=== PATIENT | female | born 1955 | race Caucasian/White ===

== ENCOUNTER 2016-03-22 11:28 | Emergency (ER) ==
--- NOTE | 2016-03-22 11:53 | PROVIDER DOCUMENTATION ---
HPI-General Adult - General Source: patient - History of Present Illness -Gen Adult Nature of Presenting Problems: patient is a 60 y/o F that presents to the ER with 2 weeks of lower leg swelling. patient has lung ca with last chemo a month ago. was admitted a two weeks ago with pneumonia. patient saw yesterday and had lab work, he advised her to f/u with today in which he sent her here for evaluation of lower leg edema and possible admission. pt has had no chest pain, shortness of breath, or fever/chills. Location of Pain/Injury: reports: lower extremity Pain Radiation: reports: no radiation Quality of Pain: reports: none Severity: reports: mild, moderate Onset/Duration: reports: gradual, other (2 weeks) Timing: reports: still present, constant Context/Activities at Onset: reports: none Modifying Factors: improves with: nothing Associated Symptoms: reports: malaise, weakness. denies: back/neck pain, chest pain, cough, dizziness, EENT symptoms, fever/chills, genitourinary problems, nausea, rash, trouble walking Similar Symptoms Previously?: Yes Recently seen or treated by another doctor?: Yes <Juan M Abdul - Last Filed: 03/22/16 12:59> <Val Coleman - Last Filed: 03/22/16 16:32> - General Chief Complaint: High Blood Sugar Stated Complaint: BLOOD SUGAR PROB Time Seen by Provider: 03/22/16 11:39 Allergies/Adverse Reactions: Patient Allergies Allergy/AdvReac Type Severity Reaction Status Date / Time codeine Allergy RASH Verified 03/08/16 10:25 morphine AdvReac Severe NAUSEA AND Verified 03/08/16 10:25 VOMITING methadone AdvReac NAUSEA/VOMI Verified 03/08/16 10:25 TING PAPER TAPE Allergy RASH Uncoded 03/08/16 10:25 Home Medications: Methocarbamol 750 mg PO DAILY 10/26/15 Prednisone 20 mg PO DAILY 10/26/15 Triamterene/Hydrochlorothiazid [Triamterene-Hctz 37.5-25 mg Cp] 1 each PO DAILY 10/26/15 Methotrexate 2.5 mg PO DAILY 03/08/16 Metoclopramide [Reglan] 10 mg PO Q6HR 03/08/16 Promethazine [Phenergan] 25 mg PO Q6H PRN PRN 03/08/16 Review of Systems - Adult - REVIEW OF SYSTEMS - ADULT Constitutional: reports: fatique. denies: chills, fever Eyes: reports: no symptoms reported Ears, Nose, Mouth & Throat: reports: no symptoms reported Cardiovascular: reports: edema. denies: chest pain, palpitations, syncope Respiratory: denies: cough, shortness of breath, wheezing Gastrointestinal: denies: abdominal pain, diarrhea, nausea, vomiting Genitourinary: reports: no symptoms reported Musculoskeletal: denies: back pain, muscle aches, neck pain Integumentary: denies: itching, rash, skin thickening Neurological: reports: no symptoms reported Psychiatric: reports: no symptoms reported Endocrine: reports: no symptoms reported Hematologic/Lymphatic: reports: no symptoms reported Allergic/Immunologic: reports: no symptoms reported All Other Systems: Reviewed and Negative <Juan M Abdul - Last Filed: 03/22/16 12:59> Past History - Adult - PAST MEDICAL HISTORY-ADULT Review of Records: reports: Old Records Reviewed, Nursing Assessment Review, Medications Reviewed Cardiovascular: reports: HTN Respiratory: reports: cancer, other Gastrointestinal: reports: GERD Musculoskeletal: reports: arthritis (Rheumatoid), chronic pain, orthopedic injury Psychiatric: reports: anxiety - PRIOR SURGERIES/PROCEDURES Surgical/Procedure History: reports: recent surgery - IMMUNIZATION STATUS Childhood Immunizations: See Nurse Assessment Flu Vaccine: See Nurse Assessment - FAMILY HISTORY Family History: reviewed, not pertinent <Juan M Abdul - Last Filed: 03/22/16 12:59> Physical Exam-General - PHYSICAL EXAM-ADULT Initial Vital Signs Reviewed: Yes - EYES Eyes: PERRL/EOMI, pink conjunctivae - HEAD, EARS, NOSE, MOUTH & THROAT HENMT: normocephalic/atraumatic, moist mucous membranes, normal ENT inspection - NECK Neck: non-tender, full range of motion, normal inspection - RESPIRATORY Respiratory: chest non-tender, lungs clear, normal breath sounds, no respiratory distress, no accessory muscle use - CARDIOVASCULAR Cardiovascular: no gallop, no JVD, systolic murmur - GASTROINTESTINAL (ABDOMEN) Abdominal Exam: normal bowel sounds, non tender, soft, no organomegaly, no pulsatile mass - MUSCULOSKELETAL Extremity: normal range of motion, normal capillary refill, pelvis stable, pedal edema (2 plus) - SKIN Integumentary: normal color, warm/dry - NEUROLOGIC Neurologic: grossly normal, no motor/sensory deficits - PSYCHIATRIC Psych/Mental Status: normal mood/affect, normal thought content, normal thought process, oriented x 3 <Juan M Abdul - Last Filed: 03/22/16 12:59> Progress - EKG 1 Time of EKG reading by physician:: 12:29 EKG Read and Signed by:: Sandra Padilla EKG Interpretation (*Must complete 3 of following elements*): Abnormal Rate: 95 Rhythm: NSR TX Interval: normal ST Wave: normal Comments: prolonged QT <Juan M Abdul - Last Filed: 03/22/16 12:59> - PLAN OF CARE/RESULTS Progress/Plan/Lab Results: Vascular now to bedside 1525 Vital Signs Temp Pulse Resp BP Pulse Ox 03/22/16 15:13 96 H 16 130/75 98 03/22/16 11:32 98 F 96 H 18 128/74 94 L codeine Allergy (Verified 03/08/16 10:25) RASH morphine Adverse Reaction (Severe, Verified 03/08/16 10:25) NAUSEA AND VOMITING methadone Adverse Reaction (Verified 03/08/16 10:25) NAUSEA/VOMITING PAPER TAPE Allergy (Uncoded 03/08/16 10:25) RASH Methocarbamol 750 mg PO DAILY 10/26/15 Prednisone 20 mg PO DAILY 10/26/15 Triamterene/Hydrochlorothiazid [Triamterene-Hctz 37.5-25 mg Cp] 1 each PO DAILY 10/26/15 Insulin Detemir [Levemir Flextouch] 40 unit SQ BID #0 11/15/15 Nadolol [Corgard] 20 mg PO DAILY #0 tablet 11/15/15 Rivaroxaban [Xarelto] 15 mg PO BID #60 tablet 11/15/15 Ondansetron [Zofran] 4 mg PO Q6H PRN PRN #20 tablet 11/19/15 Albuterol 2.5MG/Ipratrop 0.5MG [Duoneb (A & A)] 3 ml INH Q2H PRN PRN #0 neb Methotrexate 2.5 mg PO DAILY 03/08/16 Metoclopramide [Reglan] 10 mg PO Q6HR 03/08/16 Promethazine [Phenergan] 25 mg PO Q6H PRN PRN 03/08/16 CefUROXIME [Ceftin] 250 mg PO Q12HR #14 tablet 03/09/16 Folic Acid 1 mg PO DAILY #0 tablet 03/09/16 Furosemide [Lasix] 20 mg PO DAILY #0 tablet 03/09/16 Gabapentin [Neurontin] 300 mg PO TID #0 capsule 03/09/16 Levofloxacin [Levaquin] 750 mg PO DAILY #7 tablet 03/09/16 Omeprazole [Prilosec] 40 mg PO DAILY@07 #0 capsule 03/09/16 Potassium Chloride E.r. [Klor-Con] 20 meq PO BID #0 tablet 03/09/16 SIMVAstatin [Zocor] 10 mg PO DAILY #0 tablet 03/09/16 Laboratory 03/22/16 03/22/16 03/22/16 12:30 12:00 12:00 WBC 4.57 L RBC 3.89 L Hgb 10.8 L Hct 34.0 L MCV 87.4 MCH 27.8 MCHC 31.8 L RDW Std Deviation 16.7 H Plt Count 136 MPV 9.8 Immature Gran % (Auto) 0.0 Neut % (Auto) 66.8 Lymph % (Auto) 16.8 L [place] % (Auto) 14.2 H Eos % (Auto) 1.8 Baso % (Auto) 0.4 Immature Gran # (Auto) 0.00 Neut # (Auto) 3.05 Lymph # (Auto) 0.77 L [place] # (Auto) 0.65 H Eos # (Auto) 0.08 Baso # (Auto) 0.02 PT 15.1 INR 1.16 H APTT (Factor Assay) 30.9 D-Dimer > 20.00 H Sodium Potassium Chloride Carbon Dioxide Anion Gap BUN Creatinine Estimated GFR/1.73 m2 BUN/Creatinine Ratio Glucose POC Glucose Calculated Osmolality Calcium Magnesium Total Bilirubin AST ALT Alkaline Phosphatase Creatine Kinase Troponin T Maf-N-Rqasvclaabw Pept Total Protein Albumin Globulin Albumin/Globulin Ratio Urine Source CLEAN CATCH Urine Color YELLOW Urine Clarity SL. CLOUDY A Urine pH 7.0 Ur Specific [place] 1.010 Urine Protein NEGATIVE Urine Ketones NEGATIVE Urine Blood NEGATIVE Urine Nitrite NEGATIVE Urine Bilirubin NEGATIVE Urine Urobilinogen NORMAL Urine Microscopic RBC Not Reportable Urine WBC 2+ A Urine Microscopic WBC 20-40 A Ur Epithelial Cells >10 A Urine Bacteria 1+ Urine Glucose NEGATIVE 03/22/16 03/22/16 03/22/16 12:00 12:00 12:00 WBC RBC Hgb Hct MCV MCH MCHC RDW Std Deviation Plt Count MPV Immature Gran % (Auto) Neut % (Auto) Lymph % (Auto) [place] % (Auto) Eos % (Auto) Baso % (Auto) Immature Gran # (Auto) Neut # (Auto) Lymph # (Auto) [place] # (Auto) Eos # (Auto) Baso # (Auto) PT INR APTT (Factor Assay) D-Dimer Sodium 136 Potassium 2.6 L Chloride 95 L Carbon Dioxide 33 Anion Gap 9 BUN 12 Creatinine 0.7 Estimated GFR/1.73 m2 > 60 BUN/Creatinine Ratio 17 Glucose 185 H POC Glucose Calculated Osmolality 277 Calcium 8.9 Magnesium 1.9 Total Bilirubin 0.80 AST 35 H ALT 14 Alkaline Phosphatase 156 H Creatine Kinase 45 Troponin T < 0.010 Bmx-C-Fosssuoxxwb Pept 38 Total Protein 7.1 Albumin 3.3 L Globulin 4.0 Albumin/Globulin Ratio 1.0 Urine Source Urine Color Urine Clarity Urine pH Ur Specific [place] Urine Protein Urine Ketones Urine Blood Urine Nitrite Urine Bilirubin Urine Urobilinogen Urine Microscopic RBC Urine WBC Urine Microscopic WBC Ur Epithelial Cells Urine Bacteria Urine Glucose 03/22/16 11:32 WBC RBC Hgb Hct MCV MCH MCHC RDW Std Deviation Plt Count MPV Immature Gran % (Auto) Neut % (Auto) Lymph % (Auto) [place] % (Auto) Eos % (Auto) Baso % (Auto) Immature Gran # (Auto) Neut # (Auto) Lymph # (Auto) [place] # (Auto) Eos # (Auto) Baso # (Auto) PT INR APTT (Factor Assay) D-Dimer Sodium Potassium Chloride Carbon Dioxide Anion Gap BUN Creatinine Estimated GFR/1.73 m2 BUN/Creatinine Ratio Glucose POC Glucose 152 H Calculated Osmolality Calcium Magnesium Total Bilirubin AST ALT Alkaline Phosphatase Creatine Kinase Troponin T Fiz-S-Dmbhesvtcuk Pept Total Protein Albumin Globulin Albumin/Globulin Ratio Urine Source Urine Color Urine Clarity Urine pH Ur Specific [place] Urine Protein Urine Ketones Urine Blood Urine Nitrite Urine Bilirubin Urine Urobilinogen Urine Microscopic RBC Urine WBC Urine Microscopic WBC Ur Epithelial Cells Urine Bacteria Urine Glucose Orders Category Date Time Status Cardiac Monitoring DIRECTED Care 03/22/16 11:47 Active FSBS [Finger Stick Blood Sugar (ED)] DIRECTED Care 03/22/16 11:37 Active Oxygen Therapy- ED Nursing DIRECTED Care 03/22/16 11:47 Active Saline Loc NOW Care 03/22/16 11:47 Active CHEST-2 VIEWS [RAD] Stat Exams 03/22/16 11:47 Completed CBC WITH ELECTRONIC DIFF [HEME] Stat Lab 03/22/16 12:00 Completed CK PROFILE [SP CHEM] Stat Lab 03/22/16 12:00 Completed COMPREHENSIVE METABOLIC PANEL [CHEM] Stat Lab 03/22/16 12:00 Completed D-DIMER PL [COAG] Stat Lab 03/22/16 12:00 Completed MAGNESIUM [CHEM] Stat Lab 03/22/16 12:00 Completed PRO B-NATRIURETIC PEPTIDE Stat Lab 03/22/16 12:00 Completed [address]IME WITH INR PL [COAG] Stat Lab 03/22/16 12:[address] [COAG] Stat Lab 03/22/16 12:00 Completed TROPONIN T Stat Lab 03/22/16 12:00 Completed UA [URINALYSIS PL W/POSS RFLX CULT] [URINALYSIS] Stat Lab 03/22/16 12:30 Completed URINE CULTURE [RM] Routine Lab 03/22/16 12:20 Received 0.9% Sodium Chloride Inj [Ns] 500 ml Med 03/22/16 14:11 Discontinued .ROUTE As Directed 0.9% Sodium Chloride Inj [Ns] 500 ml Med 03/22/16 14:21 Active IV 75 mls/hr CefTRIAXONE 1 GM/NS [Rocephin 1 gm/Ns] 50 ml Med 03/22/16 13:03 Discontinued IV NOW Furosemide [Lasix] Med 03/22/16 16:15 Once 20 mg IV NOW ONE Potassium Chloride 10 Meq/Swi 100 ml Med 03/22/16 12:58 Discontinued IV ONCE EKG [EKG] Stat Ther 03/22/16 11:47 Draft Venous U/S Bilateral Legs [CV] Stat Ther 03/22/16 13:49 Ordered - XRAY 1 XRAY: Bilateral XRAY Study: Chest Impression: Abnormal (improving RUL pneumonia) - ULTRASOUND (By Radiology) 1 US Study: Lower Ext (bilaterally) Impression: Abnormal (No DVT, reactive LNs laying on top of the femoral vein, but not occluding this area. perVascular) - CONSULTS/PCP/HOSPITALIST Notification #1 *Consult/PCP/Hospitalist*: Dr. Foster PCP Time Discussed: 16:26 Reason/Comments: Edema Consult Disposition: F/U in office (Put on Aldactone 25 mg daily and f/u in office for lab recheck on Monday) <Val Coleman - Last Filed: 03/22/16 16:32> Departure <Juan M Abdul - Last Filed: 03/22/16 12:59> - Departure Time of Disposition Order: 16:17 Certified Medical Emergency: Emergent <Val Coleman - Last Filed: 03/22/16 16:32> - Departure DIAGNOSIS: Dependent edema, Acute UTI Disposition: HOME 01 Condition: Stable Additional Instructions: Follow up with Dr. Foster this week ED Follow Up Instructions: You have been treated by a care provider in the Emergency Department. These instructions are being provided to you so you can have an understanding of how to care for yourself upon discharge. Upon discharge from the Emergency Department, you are responsible for making arrangements for follow-up care by a physician of your choice. Take all prescribed medications as directed. Return to the Emergency Department immediately for any new or worsening symptoms. You may call the Physician Referral phone number at [phone] to obtain a list of Physicians who are taking new patients. Prescriptions: Spironolactone [Aldactone] 25 mg PO DAILY #30 tablet Cephalexin [Keflex] 500 mg PO BID #20 capsule Referrals: Sinan Foster MD [Primary Care Provider] - Attestation - Scribe Verification/Attestation Scribe:: Juan M Abdul Acting as Scribe for:: Val Coleman Scribe documention review:: This chart was documented by a scribe and accurately reflects the service the provider performed and the decisions made by the provider. - Physician/ Mid-level Attestation Patient care was provided by Mid-level provider (SUBSTANCE ABUSE COUNSELOR/PA):: Yes Mid-level provider:: Val Coleman Mid-level documentation review:: The Mid-level provider documentation, treatment plan and medical decision making was reviewed by the physician who agrees with all treatment and medical decision making by the [facility]. <Juan M Abdul - Last Filed: 03/22/16 12:59> Physician Attestation
[2016-03-22 12:05] LABS: MANUAL DIFF NEEDED? NO
[2016-03-22 12:07] LABS: BASO% 0.4 % (0.0-0.8); EOS# 0.08 X1000 (0.0-0.7); EOS% 1.8 % (0.0-10.0); HEMOGLOBIN 10.8 g/dL (12.0-16.0); LYMPH# 0.77 X1000 (1.2-3.4); LYMPH% 16.8 % (20.5-51.1); MCH 27.8 PG (27-31); MCHC 31.8 g/dL (33-37); MCV 87.4 FL (81-99); MONO# 0.65 X1000 (0.11-0.59); MONO% 14.2 % (1.7-9.3); MPV 9.8 FL (7.4-10.4); NEUT% 66.8 % (42.2-75.2); PLT 136 X1000 (130-400); RBC 3.89 XMIL (4.2-5.4)
[2016-03-22 12:27] LABS: INR 1.16 (0.86-1.15); PROTIME 15.1 Seconds (12.1-15.5)
[2016-03-22 12:28] LABS: PTT PL 30.9 Seconds (22.6-43.9)
--- NOTE | 2016-03-22 12:39 | EKG Report ---
Test Performed on : 03/22/2016 12:29:13 PM Test Reason : CHEST PAIN Blood Pressure : / mmHG Vent. Rate : 095 BPM Atrial Rate : 095 BPM P-R Int : 154 ms QRS Dur : 102 ms QT Int : 428 ms P-R-T Axes : 067 057 060 degrees QTc Int : 537 ms Normal sinus rhythm. Prolonged QT Abnormal ECG When compared with ECG of 08-MAR-2016 10:57, QT has lengthened Unconfirmed Result
[2016-03-22 12:51] LABS: URINE SOURCE CLEAN CATCH
[2016-03-22 12:56] LABS: AGAP 9; ALBUMIN 3.3 g/dL (3.5-5.0); ALKALINE PHOSPHATASE 156 U/L (32-104); BUN 12 mg/dL (8-22); CALCIUM 8.9 mg/dL (8.8-10.2); CHLORIDE 95 mmol/L (98-107); CK PROFILE 45 U/L (24-173); COSMO 277; GOT 35 U/L (10-30); GPT 14 U/L (10-36); MAGNESIUM 1.9 mg/dL (1.5-2.7); POTASSIUM 2.6 mmol/L (3.5-5.1); SODIUM 136 mmol/L (136-145); TCO2 33 mmol/L (25-35); TOTAL PROTEIN 7.1 g/dL (6.3-8.3)
[2016-03-22] MEDS ORDERED: POTASSIUM CHLORIDE 10 MEQ/SWI 100 ML IV ONE (12:58)
[2016-03-22 13:01] LABS: BILIRUBIN URINE NEGATIVE (NEGATIVE); BLOOD URINE NEGATIVE (NEGATIVE); CLARITY SL. CLOUDY (CLEAR); COLOR YELLOW; GLUCOSE URINE NEGATIVE (NEGATIVE); LEUKOCYTES URINE 2+ (NEGATIVE); NITRITE URINE NEGATIVE (NEGATIVE); PROTEIN URINE NEGATIVE (NEGATIVE); UROBILINOGEN URINE NORMAL
[2016-03-22] MEDS ORDERED: ROCEPHIN 1 GM/NS 50 ML IV ONE (13:03)
[2016-03-22 13:06] LABS: URINE CULTURE PL NEEDED? YES; URINE EPITHELIAL CELLS >10 /HPF (<10); URINE WBC 20-40 /HPF (<10)
--- NOTE | 2016-03-22 14:06 | Diag Imaging Result Document ---
PROCEDURE NAME: CHEST-2 VIEWS - 03/22/2016 TWO VIEWS OF THE CHEST: FINDINGS: There is some improvement in the pneumonia or atelectasis, which was present previously on 03/08/2016 in the right upper lobe. No additional abnormalities are present. IMPRESSION: Improved right upper lobe pneumonia.
[2016-03-22] MEDS ORDERED: NS 500 ML ONE (14:11)
[2016-03-22] MEDS ORDERED: NS 500 ML IV ONE (14:21)
[2016-03-22] MEDS ORDERED: LASIX IV ONE (16:15)
[2016-03-22 16:54] VITALS: BP 140/75
--- NOTE | 2016-03-23 07:13 | Extremity Venous Study ---
PROCEDURE NAME: Venous U/S Bilateral Legs - 03/22/2016 BILATERAL LOWER EXTREMITY DOPPLER VENOUS ULTRASOUND: COMPARED WITH: 11/14/2015. The deep veins of the bilateral lower extremities demonstrate flow and compressibility. There are no filling defects identified. There are ovoid hypoechoic structures adjacent to the anterior margins of the bilateral common femoral veins. A similar structure was seen on the right on the previous exam. These are of uncertain significance, but may possibly represent lymph nodes. IMPRESSION: No evidence of deep venous thrombosis in either lower extremity.
== END 2016-03-22 16:53 | disposition home or self-care (01) ==
LOC: P.ED 11:28
DX: N39.0 Urinary tract infection, site not specified (principal); R60.9 Edema, unspecified; M79.89 Other specified soft tissue disorders; I10 Essential (primary) hypertension; R53.83 Other fatigue; R01.1 Cardiac murmur, unspecified; K21.9 Gastro-esophageal reflux disease without esophagitis; C34.90 Malignant neoplasm of unspecified part of unspecified bronchus or lung; Z79.899 Other long term (current) drug therapy; M06.9 Rheumatoid arthritis, unspecified; G89.29 Other chronic pain; R94.31 Abnormal electrocardiogram [ECG] [EKG]; F41.9 Anxiety disorder, unspecified; Z79.52 Long term (current) use of systemic steroids; Z79.01 Long term (current) use of anticoagulants; Z79.4 Long term (current) use of insulin
CPT/HCPCS: 36415; 71020; 80053; 81001; 82550; 82948; 83735; 83880; 84484; 85025; 85379; 85610; 85730; 87088; 93005; 93970; J0696; J1940; J3480; J7040

== ENCOUNTER 2016-06-05 18:28 | Inpatient (IN) ==
[2016-06-05] MEDS ORDERED: TYLENOL PR ONE (18:32)
[2016-06-05] MEDS ORDERED: DUONEB (A & A) INH ONE (18:32)
[2016-06-05] MEDS ORDERED: MAGNESIUM SULFATE 1 GM/D5W 100 ML IV ONE (18:34)
[2016-06-05] MEDS ORDERED: ZOSYN 4.5 GM/NS 100 ML IV ONE (18:35)
--- NOTE | 2016-06-05 18:35 | PROVIDER DOCUMENTATION ---
HPI-Respiratory General - General Source: EMS Unable to obtain history due to:: urgency (respiratory distress) - History of Present Illness-Resp Severity in ED: reports: severe Onset/Duration: reports: this morning Timing: reports: still present Associated Symptoms: reports: fever/chills, shortness of breath Similar Symptoms Previously?: No Recently seen or treated by another doctor?: No <Herlinda Simpson - Last Filed: 06/05/16 19:23> <Cameron Redmond - Last Filed: 06/05/16 20:26> - General Chief Complaint: Shortness of Breath Stated Complaint: sob Time Seen by Provider: 06/05/16 18:31 Allergies/Adverse Reactions: Patient Allergies Allergy/AdvReac Type Severity Reaction Status Date / Time codeine Allergy RASH Verified 06/05/16 18:55 adhesive tape AdvReac Severe RASH Verified 06/05/16 18:55 morphine AdvReac Severe NAUSEA AND Verified 06/05/16 18:55 VOMITING methadone AdvReac NAUSEA/VOMI Verified 06/05/16 18:55 TING Home Medications: Home Medication List Medication Instructions Recorded Confirmed Last Taken Type Methocarbamol 750 mg PO DAILY 10/26/15 04/13/16 11/21/15 History Prednisone 20 mg PO DAILY 10/26/15 04/13/16 03/07/16 History Triamterene/Hydrochlorothiazid 1 each PO DAILY 10/26/15 04/13/16 03/07/16 History [Triamterene-Hctz 37.5-25 mg Cp] Insulin Detemir [Levemir Flextouch] 40 unit SQ BID #0 11/15/15 04/13/16 Rx Nadolol [Corgard] 20 mg PO DAILY #0 tablet 11/15/15 04/13/16 11/21/15 Rx Ondansetron [Zofran] 4 mg PO Q6H PRN PRN #20 tablet 11/19/15 04/13/16 11/21/15 Rx Albuterol 2.5MG/Ipratrop 0.5MG 3 ml INH Q2H PRN PRN #0 neb 03/04/16 04/13/16 Unknown Rx [Duoneb (A & A)] Methotrexate 2.5 mg PO DAILY 03/08/16 04/13/16 03/07/16 History Promethazine [Phenergan] 25 mg PO Q6H PRN PRN 03/08/16 04/13/16 03/07/16 History Folic Acid 1 mg PO DAILY #0 tablet 03/09/16 04/13/16 Unknown Rx Furosemide [Lasix] 20 mg PO DAILY #0 tablet 03/09/16 04/13/16 Unknown Rx Gabapentin [Neurontin] 300 mg PO TID #0 capsule 03/09/16 04/13/16 Unknown Rx Levofloxacin [Levaquin] 750 mg PO DAILY #7 tablet 03/09/16 04/13/16 Unknown Rx Omeprazole [Prilosec] 40 mg PO DAILY@07 #0 capsule 03/09/16 04/13/16 Unknown Rx Potassium Chloride E.r. [Klor-Con] 20 meq PO BID #0 tablet 03/09/16 04/13/16 Unknown Rx Alprazolam 2 mg PO BID 04/13/16 04/13/16 Unknown History Docusate Sodium [Colace] 100 mg PO BID 04/13/16 04/13/16 Unknown History Escitalopram [Lexapro] 10 mg PO DAILY 04/13/16 04/13/16 Unknown History Hydrocodone/Acetaminophen [[place] 1 each PO Q8H PRN PRN #10 tablet 04/15/16 Unknown Rx 10-325 Tablet] - History of Present Illness-Resp Nature of Presenting Problem: Per EMS, pt has had shortness of breath with an onset of this morning. EMS states that SOB became worse over the last 1-2 hours. Pt is a cancer pt of Dr. Chávezs for lung cancer. Pt had one breathing treatment prior to EMS arrival and 2 en-route to the ED. PT was also placed on CPAP prior to arrival with minimal improvement. On arrival pt is noted to have a fever. (Herlinda Simpson) Review of Systems - Adult - REVIEW OF SYSTEMS - ADULT ROS:: unobtainable per condition (repspiratory distress) Constitutional: reports: fever Eyes: reports: no symptoms reported Ears, Nose, Mouth & Throat: reports: no symptoms reported Cardiovascular: reports: no symptoms reported Respiratory: reports: shortness of breath Gastrointestinal: reports: no symptoms reported Genitourinary: reports: no symptoms reported Musculoskeletal: reports: no symptoms reported Integumentary: reports: no symptoms reported Neurological: reports: no symptoms reported Psychiatric: reports: no symptoms reported Endocrine: reports: no symptoms reported Hematologic/Lymphatic: reports: no symptoms reported Allergic/Immunologic: reports: no symptoms reported All Other Systems: Reviewed and Negative <Herlinda Simpson - Last Filed: 06/05/16 19:23> Past History - Adult - PAST MEDICAL HISTORY-ADULT Review of Records: reports: Nursing Assessment Review, Medications Reviewed Major Childhood Illnesses: reports: denies history Cardiovascular: reports: HTN Respiratory: reports: cancer Gastrointestinal: reports: GERD, liver disease (cirrhosis) Genitourinary: reports: chronic UTI's Musculoskeletal: reports: arthritis (Rheumatoid), chronic pain, orthopedic injury Psychiatric: reports: anxiety - PRIOR SURGERIES/PROCEDURES Surgical/Procedure History: reports: hysterectomy, BTL, other (hemorroid) - IMMUNIZATION STATUS Childhood Immunizations: See Nurse Assessment Flu Vaccine: See Nurse Assessment - FAMILY HISTORY Family History: reviewed, not pertinent - SOCIAL HISTORY Smoking: non-smoker Substance Use: none/never Alcohol Use Frequency: never <Herlinda Simpson - Last Filed: 06/05/16 19:23> Physical Exam-General - PHYSICAL EXAM-ADULT Initial Vital Signs Reviewed: Yes - CONSTITUTIONAL General Appearance: alert, severe distress - RESPIRATORY Respiratory: decreased breath sounds, wheezing, retractions - CARDIOVASCULAR Cardiovascular: tachycardia - PSYCHIATRIC Psych/Mental Status: oriented x 3 <Herlinda Simpson - Last Filed: 06/05/16 19:23> Progress - XRAY 1 XRAY Study: Chest Impression: Abnormal XRAY Interpretation: mass and infiltrate to upper and lower lobes: Dr. Redmond(ER ) <Marlen Simpsona - Last Filed: 06/05/16 19:23> - EKG 1 Time of EKG reading by physician:: 19:25 EKG Read and Signed by:: Cameron Redmond Rate: 120 Rhythm: sinus tach [place]: normal QRS: other (right ventricular conduction delay) ST Wave: non-specific ST changes Prior EKG Comparison: no prior EKG Comments: no STEMI - XRAY 1 XRAY Study: Chest (large right side infiltrate and mass) <Cameron Redmond - Last Filed: 06/05/16 20:26> - PLAN OF CARE/RESULTS Progress/Plan/Lab Results: DELAY: called lab: no blood has been sent to lab so far, checked patient who reports that lab just aziza blood (Cameron Redmond) Departure <Herlinda Simpson - Last Filed: 06/05/16 19:23> - Departure Time of Disposition Order: 20:24 Certified Medical Emergency: Emergent <Cameron Redmond - Last Filed: 06/05/16 20:26> - Departure DIAGNOSIS: Lung mass Pneumonia Qualifiers: Pneumonia type: due to unspecified organism Laterality: right Lung location: unspecified part of lung Qualified Code(s): J18.9 - Pneumonia, unspecified organism Sepsis Qualifiers: Sepsis type: sepsis due to unspecified organism Qualified Code(s): A41.9 - Sepsis, unspecified organism Disposition: ADMITTED INPATIENT 09 Condition: Serious Referrals: None,PCP [Primary Care Provider] - Attestation - Scribe Verification/Attestation Scribe:: Herlinda Simpson Acting as Scribe for:: Cameron Redmond Scribe documention review:: This chart was documented by a scribe and accurately reflects the service the provider performed and the decisions made by the provider. <Herlinda Simpson - Last Filed: 06/05/16 19:23> Physician Attestation
[2016-06-05 18:58] LABS: BE -1.1 mmoll (-3.0-3.0); BLOOD TYPE ARTERIAL; DRAW SITE R BRACHIAL; METHB 1.3 % (0.0-1.5); O2(CT) 14.7 mL/dL (15.0-23.0); PCO2(98.6) 38 mmHg (35-45); PO2(98.6) 82 mmHg (60-100); SAMPLE BLOOD; SAO2 98.7 % (95.0-100.0); THB 10.9 g/dL (11.5-17.4)
[2016-06-05 19:00] LABS: ALLEN TEST NO; MODALITY BI PAP
[2016-06-05] MEDS ORDERED: VANCOMYCIN 1 GM/NS 250 ML IV ONE (19:09)
[2016-06-05] MEDS ORDERED: VANCOMYCIN IV PER PHARMACY MISC SCH (19:15)
[2016-06-05 20:08] LABS: BASO% 0.1 % (0.0-0.8); HEMATOCRIT 31.2 % (37.0-47.0); HEMOGLOBIN 9.8 g/dL (12.0-16.0); IMM GRAN# 0.14 X1000 (0.0-0.04); IMM GRAN% 1.1 % (0.0-0.5); LYMPH# 0.21 X1000 (1.2-3.4); LYMPH% 1.6 % (20.5-51.1); MANUAL DIFF NEEDED? NO; MCH 26.3 PG (27-31); MCHC 31.4 g/dL (33-37); MCV 83.9 FL (81-99); MONO# 0.61 X1000 (0.11-0.59); MONO% 4.8 % (1.7-9.3); MPV 11.7 FL (7.4-10.4); NEUT% 92.4 % (42.2-75.2); PLT 100 X1000 (130-400); RBC 3.72 XMIL (4.2-5.4)
[2016-06-05] MEDS ORDERED: HUMULIN R SUBQ PRN (20:21)
[2016-06-05 20:23] LABS: AGAP 14; ALBUMIN 2.7 g/dL (3.5-5.0); ALKALINE PHOSPHATASE 113 U/L (32-104); BUN 15 mg/dL (8-22); CALCIUM 8.9 mg/dL (8.8-10.2); CHLORIDE 96 mmol/L (98-107); COSMO 280; GOT 14 U/L (10-30); GPT 24 U/L (10-36); POTASSIUM 3.7 mmol/L (3.5-5.1); SODIUM 131 mmol/L (136-145); TCO2 21 mmol/L (25-35)
[2016-06-05] MEDS ORDERED: NS 1,000 ML IV ONE ×2 (20:23)
[2016-06-05] MEDS ORDERED: LOVENOX SUBQ SCH (20:30)
[2016-06-05] MEDS ORDERED: PITRESSIN 40 UNIT in NS 100 ML IV SCH (20:30)
[2016-06-05] MEDS ORDERED: EPINEPHRINE 8 MG in D5W 250 ML IV SCH (20:30)
[2016-06-05] MEDS ORDERED: ZOSYN 3.375 GM/NS 50 ML IV SCH (20:30)
[2016-06-05] MEDS ORDERED: NS 2,800 ML IV ONE (20:56)
[2016-06-05] MEDS ORDERED: SOLU-CORTEF IV ONE (20:57)
[2016-06-05] MEDS ORDERED: NS 2,000 ML ONE (20:59)
[2016-06-05 22:52] LABS: URINE SOURCE CATH
[2016-06-05 23:16] LABS: BILIRUBIN URINE NEGATIVE (NEGATIVE); BLOOD URINE NEGATIVE (NEGATIVE); CLARITY SL. CLOUDY (CLEAR); COLOR YELLOW; LEUKOCYTES URINE TRACE (NEGATIVE); NITRITE URINE NEGATIVE (NEGATIVE); PROTEIN URINE 1+(30 mg/dL) mg/dL (NEGATIVE); SP GRAVITY URINE 1.015; UROBILINOGEN URINE NORMAL
[2016-06-05 23:16] LABS: INR 1.36 (0.86-1.15)
[2016-06-05 23:17] LABS: PTT PL 24.5 Seconds (22.6-43.9)
[2016-06-05 23:18] LABS: URINE CAST GRANULAR PRESENT /LPF; URINE CULTURE PL NEEDED? YES; URINE EPITHELIAL CELLS <10 /HPF (<10); URINE RBC <10 /HPF (<10); URINE WBC <10 /HPF (<10)
[2016-06-05] MEDS ORDERED: LEVOPHED 8 MG in D5 1/2 NS 250 ML IV SCH (23:45)
[2016-06-06] MEDS: NS 500 ML IV SCH ×11 (01:08→09:35)
[2016-06-06] MEDS ORDERED: VANCOMYCIN 1 GM/NS 250 ML IV ONE (02:00)
[2016-06-06] MEDS ORDERED: HUMULIN R DOSE (PARKWAY) SUBQ PRN (02:17)
--- NOTE | 2016-06-06 02:38 | EKG Report ---
Test Performed on : 06/05/2016 7:24:28 PM Test Reason : pain Blood Pressure : / mmHG Vent. Rate : 120 BPM Atrial Rate : 120 BPM P-R Int : 126 ms QRS Dur : 090 ms QT Int : 364 ms P-R-T Axes : 043 040 048 degrees QTc Int : 514 ms Sinus tachycardia. Possible Left atrial enlargement RSR' or QR pattern in V1 suggests right ventricular conduction delay Septal infarct , age undetermined Abnormal ECG When compared with ECG of 22-MAR-2016 12:29, RSR' pattern in V1 is now present Septal infarct is now present Unconfirmed Result
--- NOTE | 2016-06-06 09:08 | Diag Imaging Result Document ---
PROCEDURE NAME: CHEST-PORTABLE - 06/05/2016 PORTABLE CHEST: COMPARISON: 04/11/2016. FINDINGS: There is dense consolidation at the right mid lung. There is subsegmental atelectasis at the left base. The remainder of the left lung appears essentially clear. There is a questionable small right pleural effusion. There is no pneumothorax seen. Inspiration is mildly shallow. Heart size appears within normal limits. Central venous catheter remains in place. IMPRESSION: Dense consolidation at right mid lung, suspicious for pneumonia. Subsegmental atelectasis at left base.
[2016-06-06 09:40] LABS: BASO% 0.1 % (0.0-0.8); EOS# 0.06 X1000 (0.0-0.7); EOS% 0.5 % (0.0-10.0); HEMATOCRIT 30.9 % (37.0-47.0); HEMOGLOBIN 9.4 g/dL (12.0-16.0); IMM GRAN# 0.23 X1000 (0.0-0.04); LYMPH# 0.29 X1000 (1.2-3.4); LYMPH% 2.5 % (20.5-51.1); MANUAL DIFF NEEDED? NO; MCH 25.8 PG (27-31); MCHC 30.4 g/dL (33-37); MCV 84.9 FL (81-99); MONO# 0.89 X1000 (0.11-0.59); MONO% 7.7 % (1.7-9.3); MPV 11.9 FL (7.4-10.4); NEUT% 87.2 % (42.2-75.2); PLT 79 X1000 (130-400); RBC 3.64 XMIL (4.2-5.4)
[2016-06-06 10:14] LABS: AGAP 13; BUN 17 mg/dL (8-22); CALCIUM 8.4 mg/dL (8.8-10.2); CHLORIDE 105 mmol/L (98-107); COSMO 288; POTASSIUM 3.9 mmol/L (3.5-5.1); SODIUM 141 mmol/L (136-145); TCO2 23 mmol/L (25-35)
[2016-06-06] MEDS: ZOSYN 3.375 GM/NS 50 ML IV SCH ×3 (10:14→20:50)
[2016-06-06] MEDS: NS 1,000 ML IV SCH ×2 (10:14→21:42)
[2016-06-06] MEDS ORDERED: DUONEB (A & A) INH PRN (10:46)
[2016-06-06] MEDS: DUONEB (A & A) INH SCH ×4 (11:10→22:52)
[2016-06-06] MEDS ORDERED: MUCOMYST 20% INH SCH (11:15)
[2016-06-06] MEDS ORDERED: DILAUDID IV PRN ×2 (11:22→19:57)
--- NOTE | 2016-06-06 11:51 | HISTORY AND PHYSICAL ---
CHIEF COMPLAINT: Shortness of breath. HISTORY OF PRESENT ILLNESS: Briefly, this is a 60-year-old female with a history of lung cancer. She reports being cancer free. Last treatment was about a month ago. She has had chemotherapy and XRT. The patient has been sick for about 2 weeks. The patient has been coughing dark productive sputum. Subjective fevers worse over the last 24 hours so she came in, in respiratory distress yesterday. Had to be put on BiPAP. Was given breathing treatments. Her blood gas did not look too bad. She had a significant right lower lobe infiltrate and was admitted for further treatment. Denies any other issues. She is not on home oxygen. She does have a history of COPD. She quit tobacco about 20 years ago. PAST MEDICAL HISTORY: 1. COPD. 2. Diabetes. 3. Hypertension. 4. Rheumatoid arthritis. 5. GERD. 6. Cirrhosis, presumably DRISCOLL. 7. Chronic pain disorder. SOCIAL HISTORY: She told me she quit 20 years ago but her H and P from April says she still smokes. Denies any ethanol. ALLERGIES: Codeine, morphine, methadone, and paper tape. REVIEW OF SYSTEMS: Reviewed and all other systems were negative. MEDICATIONS: Medication list is being compiled. HOSPITALIZATIONS: She was last discharged over a month ago for a UTI. She had a pubic rami fracture at that time. PHYSICAL EXAMINATION: VITAL SIGNS: Blood pressure is 111/66, heart rate of 92, respiratory rate of 23, temperature 97.7 degrees, 98% on 3 L. CARDIOVASCULAR: Regular rate and rhythm. PULMONARY: Bilateral breath sounds clear to auscultation. GENERAL: A thin female in mild distress HEENT: Pupils equal, round, and reactive to light. Extraocular movements were intact. Ears, nose, and throat exam showed moist mucous membranes. NECK: Supple. No thyromegaly. PULMONARY: Diffuse rhonchi, diminished at the bases. GI: Soft, nontender, nondistended. Bowel sounds are positive. No hepatosplenomegaly. EXTREMITIES: No clubbing or cyanosis. LYMPHATICS: No peripheral edema. NEUROLOGICAL: Nonfocal. MUSCULOSKELETAL: Was 4/5 in all 4 extremities. LABORATORY DATA: Initial white count 12.8, hemoglobin and hematocrit of 9 and 31. Chemistries were unremarkable. Sugars have been up into the 300 range. Lactate 4.4 down to 3.9. PROBLEM LIST: This is a 60-year-old female with chronic obstructive pulmonary disease and a history of lung cancer, presenting with respiratory failure and pneumonia. 1. Acute respiratory failure. We weaned her off the BiPAP. Continue breathing treatments. Pulmonary toilet and follow. 2. Pneumonia. She is on vancomycin, Zosyn, and Levaquin now. We will proceed with a CT of the thorax because of her history of cancer. Sputum cultures, CPT, and follow clinically. 3. Sepsis. She has been volume resuscitated. We are going to continue to monitor that at this point. Continue broad-spectrum antibiotics. 4. Diabetes. Continue sliding scale insulin. Check an A1c and follow.
[2016-06-06] MEDS: SODIUM CHLORIDE 0.9% INJ SCH (11:53)
[2016-06-06] MEDS: LEVAQUIN 750 MG in NS 150 ML IV SCH (11:53)
[2016-06-06] MEDS: PROTONIX IV SCH (11:53)
[2016-06-06 15:12] LABS: BE -2.9 mmoll (-3.0-3.0); BLOOD TYPE ARTERIAL; O2(CT) 12.8 mL/dL (15.0-23.0); PCO2(98.6) 37 mmHg (35-45); PO2(98.6) 60 mmHg (60-100); SAMPLE BLOOD; SAO2 94.7 % (95.0-100.0); THB 9.9 g/dL (11.5-17.4); pH(98.6) 7.38 (7.35-7.45)
[2016-06-06 15:18] LABS: ALLEN TEST YES; DRAW SITE R RADIAL; MODALITY CANNULA
[2016-06-06] MEDS ORDERED: NORCO-10 PO PRN (15:26)
[2016-06-06] MEDS: SOLU-MEDROL IV SCH ×2 (15:47→23:47)
[2016-06-06] MEDS: XANAX PO SCH ×2 (15:48→20:55)
[2016-06-06] MEDS: HUMULIN R DOSE (PARKWAY) SUBQ SCH ×2 (17:28→20:51)
[2016-06-06] MEDS: MUCOMYST 20% INH SCH ×2 (19:20→22:52)
[2016-06-06] MEDS ORDERED: LASIX IV ONE (19:57)
[2016-06-06] MEDS: VANCOMYCIN 1,700 MG in NS 250 ML IV SCH (20:50)
[2016-06-06] MEDS: ALDACTONE PO SCH (20:51)
[2016-06-06] MEDS: ZANAFLEX PO SCH (20:51)
[2016-06-06] MEDS: KLOR-CON PO SCH (20:51)
[2016-06-06] MEDS: PYRIDIUM PO SCH (20:51)
[2016-06-06] MEDS: ATIVAN IV PRN (22:05)
[2016-06-07] MEDS: ZOSYN 3.375 GM/NS 50 ML IV SCH ×4 (02:51→21:47)
[2016-06-07] MEDS: DUONEB (A & A) INH SCH ×6 (04:06→23:15)
[2016-06-07] MEDS: HUMULIN R DOSE (PARKWAY) SUBQ SCH (06:14)
[2016-06-07 06:43] LABS: HEMATOCRIT 27.6 % (37.0-47.0); HEMOGLOBIN 8.4 g/dL (12.0-16.0); MCH 25.5 PG (27-31); MCHC 30.4 g/dL (33-37); MCV 83.9 FL (81-99); MPV 12.1 FL (7.4-10.4); RBC 3.29 XMIL (4.2-5.4)
[2016-06-07 07:06] LABS: AGAP 15; BUN 18 mg/dL (8-22); CALCIUM 8.5 mg/dL (8.8-10.2); CHLORIDE 100 mmol/L (98-107); COSMO 285; POTASSIUM 3.5 mmol/L (3.5-5.1); SODIUM 135 mmol/L (136-145); TCO2 20 mmol/L (25-35)
[2016-06-07] MEDS: NS 1,000 ML IV SCH ×3 (07:40→09:06)
[2016-06-07] MEDS: ATIVAN IV PRN ×2 (07:54→21:47)
[2016-06-07] MEDS: MUCOMYST 20% INH SCH ×2 (08:08→19:15)
[2016-06-07] MEDS ORDERED: LEXAPRO PO SCH (09:00)
[2016-06-07] MEDS ORDERED: ROBAXIN PO SCH (09:00)
[2016-06-07] MEDS ORDERED: FOLIC ACID PO SCH (09:00)
[2016-06-07] MEDS ORDERED: LASIX PO SCH (09:00)
[2016-06-07] MEDS ORDERED: METHOTREXATE PO SCH (09:00)
[2016-06-07] MEDS: SOLU-MEDROL IV SCH (09:03)
[2016-06-07] MEDS: ZANAFLEX PO SCH ×2 (09:04→20:28)
[2016-06-07] MEDS: PYRIDIUM PO SCH ×3 (09:04→17:03)
[2016-06-07] MEDS: KLOR-CON PO SCH ×2 (09:04→20:28)
[2016-06-07] MEDS: XANAX PO SCH ×2 (09:04→20:42)
--- NOTE | 2016-06-07 11:13 | PROGRESS NOTE ---
DATE: 06/07/2016 SUBJECTIVE: She is complaining of back pain, shortness of breath, anxiety. OBJECTIVE: Blood pressure is 110/60, heart rate of 99, respiratory of 15, temperature 98.4 degrees, 96% on 40.Cardiovascular: Tachy. Pulmonary: Bilateral breath sounds. Clear to auscultation. GI: Soft, nontender, nondistended. Bowel sounds are positive. Extremities: No clubbing or cyanosis. Lymphatics: No peripheral edema. Neurological: Nonfocal. Mental status: She seemed anxious but overall improved. LABORATORY DATA: White count is down to 5. Hemoglobin and hematocrit of 8 and 27. Platelets are down to 70,000. Chemistries: Blood sugars are up, up to 335. Hemoglobin A1c is only 7. Still waiting on her CT scan. In any case, 1. Acute respiratory failure secondary to pneumonia. We will continue empiric antibiotics. She is on vancomycin, Zosyn and Levaquin. CT of the thorax is pending. Clinically she is somewhat improved. 2. Sepsis. Again she has overall improved. Blood pressure is stable. 3. Acute respiratory failure. We are in the process of weaning O2. She is tolerating BiPAP at night. We will continue pulmonary toilet and monitor. 4. Diabetes. Resume her Levemir and follow closely. 5. History of lung cancer. Reportedly she is in remission. CT will be done today to better evaluate for other processes. I will let Dr. Evans know she is here.
[2016-06-07] MEDS: HUMALOG DOSE (PARKWAY) SUBQ SCH ×3 (11:27→20:28)
[2016-06-07] MEDS: LEVEMIR INSULIN *HA SUBQ SCH ×2 (11:28→21:47)
[2016-06-07] MEDS: LEVAQUIN 750 MG in NS 150 ML IV SCH (11:42)
[2016-06-07] MEDS: SODIUM CHLORIDE 0.9% INJ SCH (12:29)
[2016-06-07] MEDS: PROTONIX IV SCH (12:29)
[2016-06-07] MEDS ORDERED: CALMOSEPTINE OINTMENT TOP PRN (12:56)
--- NOTE | 2016-06-07 15:45 | Diag Imaging Result Document ---
PROCEDURE NAME: CT THORAX W/CONTRAST - 06/07/2016 CT OF THE CHEST WITHOUT CONTRAST: FINDINGS: There is apical pleural fibrosis bilaterally. There is loculated pleural effusion on the right with marked compressive atelectasis and dense consolidation of most of the right upper lobe. This was not present on 05/16/2016. There is right peritracheal adenopathy which was not previously present. There is subcarinal adenopathy. This was also not previously present. The spleen has enlarged changing from 12.8 cm in AP dimension to the current 14.5 cm. Some atelectatic changes are present in the left lower and upper lobes. There is a small opacity abutting the upper portion of the left major fissure, which was not present on the previous study. IMPRESSION: Markedly worsened right upper lobe pneumonia and compressive atelectasis of the right middle and lower lobes. Loculated right pleural effusion which may represent an empyema.
[2016-06-07] MEDS ORDERED: LASIX IV SCH (17:00)
[2016-06-07] MEDS: VANCOMYCIN 1,700 MG in NS 250 ML IV SCH (19:35)
[2016-06-07] MEDS: ALDACTONE PO SCH (20:28)
[2016-06-07] MEDS ORDERED: SOLU-MEDROL IV SCH (21:00)
--- NOTE | 2016-06-07 21:55 | CONSULTATION ---
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 She had a CT biopsy and has been undergoing chemotherapy and XRT as an outpatient. She over the last 2 weeks has become ill and had a productive cough and fevers with respiratory distress prompting admission to Medicine Service. She has been at the ICU at [place] on BiPAP, breathing treatments and antibiotics. She has marginally improved. She is on 5 L nasal cannula but off BiPAP. CT scan obtained today shows a loculated effusion with some atelectasis of the right upper lobe and right lower lobe consolidations. She continues with a productive cough and oxygen requirement, and some altered mental status. PAST MEDICAL HISTORY: 1. Small cell lung cancer currently undergoing chemotherapy and radiation therapy. Exact regimen is unclear. 2. COPD. 3. Diabetes. 4. Hypertension. 5. Rheumatoid arthritis. 6. GERD. 7. 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 8. Chronic pain disorder. 9. Pubic rami fracture. 10. History of urinary tract infection. PAST SURGICAL HISTORY: Unobtainable. SOCIAL HISTORY: Quit smoking 20 years ago but this is unclear as some records indicate ongoing smoking. Denies alcohol. REVIEW OF SYSTEMS: For what was obtainable, 10 point negative other than what is mentioned in HPI. PHYSICAL EXAMINATION: Vital Signs: Temperature is 97.8, pulse 95, blood pressure 112/98, oxygen saturation 95% on 5 L nasal cannula. General: She is arousable but speaks inappropriately. HEENT: No scleral icterus. Cardiovascular: Normal rate, regular rhythm. Pulmonary: Productive cough but equal chest rise bilaterally. No accessory muscle use. Abdomen: Soft, nontender, nondistended. She is quite obese. Integument: Otherwise warm and dry. LABS: White count 5, hematocrit 27, platelets 70,000. ABG 7.38, 37/60/22 that was yesterday. Creatinine is 0.7. Glucose is 335. CT scan obtained of the chest today shows right upper lobe pneumonia and atelectasis of the right middle, right lower lobe with a loculated right pleural effusion which possibly represents empyema. There is right paratracheal adenopathy not previously noted and subcarinal adenopathy. ASSESSMENT AND PLAN: This is a 60-year-old female with small cell lung cancer currently undergoing chemotherapy. She is now admitted with pneumonia and parapneumonic effusion. I do not see any gas in these loculated collections. They are not amenable to bedside drainage and given her severe pulmonary status any type of thoracoscopic or thoracotomy drainage would put her at very high risk. I worry that this could be progression of her disease despite her therapy and that these could be malignant effusions in nature and we will need input from Oncology regarding this. She clinically seems to be gradually improving as far as oxygen requirement with antibiotics. PLAN: I would recommend continuing antibiotics for treatment of severe pneumonia in the setting of lung cancer and parapneumonic effusion. Do not plan surgical intervention at this time. If she continues to deteriorate, we will discuss possibility of possible aspiration of these collections to check for purulent nature for diagnostic and possible therapeutic purposes. Given her grave diagnosis and prognosis, I would recommend engaging Palliative Therapy for discussion going forward as to goals of care. I will continue to follow along. Plan is being made to transfer her to [facility] and we will follow her here.
[2016-06-08] MEDS ORDERED: HUMULIN R SUBQ PRN (00:58)
[2016-06-08] MEDS ORDERED: DUONEB (A & A) INH PRN (00:59)
[2016-06-08] MEDS ORDERED: ATIVAN IV PRN (01:01)
[2016-06-08] MEDS ORDERED: CALMOSEPTINE OINTMENT TOP PRN (01:02)
[2016-06-08] MEDS: ZOSYN 3.375 GM/NS 50 ML IV SCH (02:27)
[2016-06-08] MEDS: DUONEB (A & A) INH SCH ×6 (03:56→23:16)
[2016-06-08] MEDS: LASIX IV SCH ×2 (04:04→16:43)
[2016-06-08] MEDS: HUMALOG SUBQ SCH ×4 (06:01→20:16)
[2016-06-08 06:22] LABS: HEMATOCRIT 27.2 % (37.0-47.0); HEMOGLOBIN 8.8 g/dL (12.0-16.0); MCH 26.6 PG (27-31); MCHC 32.4 g/dL (33-37); MCV 82.2 FL (81-99); MPV 11.6 FL (7.4-10.4); RBC 3.31 XMIL (4.2-5.4)
[2016-06-08] MEDS ORDERED: VANCOMYCIN IV PER PHARMACY MISC SCH (06:30)
[2016-06-08] MEDS ORDERED: SODIUM CHLORIDE 0.9% INJ SCH (06:45)
[2016-06-08 07:39] LABS: AGAP 15; BUN 22 mg/dL (8-22); CALCIUM 8.9 mg/dL (8.8-10.2); CHLORIDE 100 mmol/L (98-107); COSMO 292; MAGNESIUM 1.6 mg/dL (1.5-2.7); POTASSIUM 2.6 mmol/L (3.5-5.1); SODIUM 142 mmol/L (136-145); TCO2 27 mmol/L (25-35)
[2016-06-08] MEDS: MUCOMYST 20% INH SCH ×2 (07:40→19:58)
[2016-06-08] MEDS ORDERED: POTASSIUM CHLORIDE 60 MEQ in NS 500 ML IV SCH (08:45)
[2016-06-08] MEDS: SOLU-MEDROL IV SCH ×2 (08:45→20:12)
[2016-06-08] MEDS: PYRIDIUM PO SCH ×3 (08:45→17:48)
[2016-06-08] MEDS: ZANAFLEX PO SCH ×2 (08:46→20:13)
[2016-06-08] MEDS: KLOR-CON PO SCH (08:46)
[2016-06-08] MEDS: ROBAXIN PO SCH (08:46)
[2016-06-08] MEDS: FOLIC ACID PO SCH (08:47)
[2016-06-08] MEDS ORDERED: LEVEMIR SUBQ SCH (09:00)
[2016-06-08] MEDS ORDERED: XANAX PO SCH ×2 (09:00→09:30)
[2016-06-08] MEDS ORDERED: ZOSYN 3.375 GM/NS 50 ML IV SCH (09:00)
[2016-06-08] MEDS: LEXAPRO PO SCH (10:01)
--- NOTE | 2016-06-08 10:02 | PROGRESS NOTE ---
DATE: 06/08/2016 SUBJECTIVE: Patient is very sleepy today, but easily arousable to verbal stimuli. Patient reports still noticing shortness of breath. Denies any chest pain. Denies any fever or chills. OBJECTIVE: Vital Signs: Temperature 97.9 degrees, heart rate 83, respiratory rate 15 blood pressure 131/70, and O2 saturation 96% on BiPAP machine. General Examination: This is a chronically ill appearing and frail, 60-year-old female, lying in bed in no acute distress. HEENT: Head is normocephalic, atraumatic. Anicteric sclerae and pale conjunctivae. Mucous membranes dry. Neck: Supple. No JVD noted. No carotid bruits. No lymphadenopathy. No thyromegaly. Cardiovascular exam: S1, S2 heard. No murmurs, gallops, or rubs. Regular rate and rhythm. Respiratory exam: Decreased breath sounds globally with some coarse breath sounds in both bases. Patient using Venturi mask. Patient is not using any accessory muscles or having work of breathing. Abdomen: Soft, nontender to palpation. Bowel sounds present. No organomegaly. Extremities: No clubbing, cyanosis, or edema. Peripheral pulses present in both legs. Neurological exam: Patient is awake. She is very sleepy, but easily arousable. The patient moves 4 extremities. LABORATORY DATA: White cell count 9.94, hemoglobin 8.8, hematocrit 27.2, platelets 89. BMP unremarkable except severe hypokalemia of 2.6. ASSESSMENT AND PLAN: 1. Acute respiratory failure secondary to pneumonia. White cell count is back to normal now. Currently, the patient is on vancomycin, Zosyn and Levaquin. Renal function is okay. We will continue with the same management. Currently, she is requiring oxygen supplementation via Venturi mask. Initially we are using BiPAP and, at this time, we are going to try to wean off of oxygen to try to use the nasal cannula. CT of the thorax yesterday showed markedly worsening right upper lobe pneumonia, compressive atelectasis and locally right pleural effusion which may represent empyema. Dr. Juanpablo Mera from general surgery has been consulted for possible chest tube placement and, considering her medical history of cancer, he preferred to manage this conservatively. He is not going to place any chest tube by now. He requests on input from oncology. We are going to consult Pulmonary and will go from there. 3. Sepsis secondary to pneumonia. Blood pressure is stable, as well as respiratory rate. We will continue with the same antibiotic therapy. 4. Diabetes mellitus type 2. The blood sugars have been a little bit higher, so we prefer to increase the doses of Levemir from 20-25 mg to 20-25 units subcutaneous twice daily. We will continue checking Accu-Chek's before meals and also at bedtime. 5. History of lung cancer. Dr. Evans will be notified about the findings in the CT scan. [facility]
--- NOTE | 2016-06-08 10:59 | CONSULTATION ---
DATE OF CONSULTATION: 06/08/2016 CONCLUSION: The patient has a history of small-cell neuroendocrine lung cancer, and is receiving chemotherapy and radiation therapy. She appears to have developed a severe pneumonia in the right lung and there may be an associated empyema. The patient has been on Levaquin, vancomycin, and Zosyn. Her x-ray today shows worsening of the pneumonia. RECOMMENDATIONS: I would suggest stopping Levaquin and Zosyn, and instead putting the patient on meropenem. I would suggest continuing vancomycin. I also will check the patient's immunoglobulin levels to see if there is a deficiency. DISCUSSION: The patient is very lethargic. She is unable provide a history and no family member was present. The information for this consult came from reviewing the data that is in the computer. The patient was admitted to the hospital because of progressive cough, fever, and eventually respiratory distress. She was put in the intensive care unit at [place] and then transferred to [facility]. The patient's CT scan shows a loculated pleural effusion and worsening of the right upper lobe pneumonia. The patient's CBC shows a white count of 9940, hemoglobin 8.8, and platelet count of 89,000. Creatinine 0.7. Blood and urine cultures are sterile. The patient's sputum grew normal dl. PAST MEDICAL HISTORY: Positive for small-cell lung cancer for which the patient is receiving chemotherapy and radiation therapy, COPD, diabetes mellitus, hypertension, rheumatoid arthritis, gastroesophageal reflux disease, cirrhosis of the liver, chronic pain disorder, pubic rami fracture, and a history of a urinary tract infection. PAST SURGICAL HISTORY: The patient's surgical history is unobtainable. SOCIAL HISTORY: The patient quit smoking 20 years ago. The patient does not drink alcoholic beverages. REVIEW OF SYSTEMS: Unable to obtain. ALLERGIES: The patient is allergic to codeine, adhesive tape, morphine, and methadone. HOME MEDICATIONS: Include triamterene/hydrochlorothiazide, tizanidine, spironolactone, prednisone, potassium, nystatin, methotrexate, methocarbamol, insulin, hydrocodone, Lasix, folic acid, Lexapro, Colace, and diclofenac. PHYSICAL EXAMINATION: Vital Signs: Temperature is 97.9 degrees, pulse 82, respirations 19, blood pressure 131/70. General: This is a 60-year-old female who is very lethargic. She appears to be dyspneic as manifested by rapid breathing. Lungs: Clear to auscultation. Cardiovascular: Heart rate was regular. I thought I heard a systolic murmur. Abdomen: Soft and nontender. Neck: No meningismus. Neurologic: The patient's eyes were closed. She is breathing on her own. She did not respond to verbal stimuli. There was no tremor. Integument: No rash noted. Thank you for the consult.
[2016-06-08] MEDS ORDERED: LEVAQUIN 750 MG in NS 150 ML IV SCH (11:00)
--- NOTE | 2016-06-08 11:33 | PROGRESS NOTE ---
DATE: 06/08/2016 SUBJECTIVE: She was transferred to [facility] overnight. She is on BiPAP this morning. She is alert, but still confused, and no obvious respiratory distress. OBJECTIVE: Vital Signs: Afebrile. Temperature this morning is 97.9. Pulse 82, blood pressure 131/70, oxygen saturation is 96% on BiPAP with an 80% flow rate. General: She is alert. She is not using accessory muscles. Chest: Equal chest rise bilaterally. I do not feel any subcutaneous air of her chest. Abdomen: Soft, nontender, nondistended. LABS: I have reviewed her labs. White count is normal at 9, hematocrit 27, creatinine 0.7. ASSESSMENT AND PLAN: A 60-year-old female with small cell lung cancer of the right lung undergoing chemotherapy and radiation. She is admitted now with severe pneumonia and also has a loculated parapneumonic effusion. I do not see obvious evidence of empyema here. She is far too ill to undergo thoracoscopic or open drainage of this. I do think it is not unreasonable to perform a CT-guided aspiration assist for directing antibiotic therapy. However, again, I think she is too tenuous from a pulmonary and mental status standpoint to tolerate this procedure at this time. Afebrile, not clinically septic, and I think she is gradually improving with antibiotics. I do worry that this could be progression of her disease and possibly a postobstructive pneumonia component or even a malignant pleural effusion. I would be interested to hear what Dr. Evans has to say about this. We will continue to follow along. No plans for surgical intervention at this time, but will possibly make plans for CT-guided aspiration of one of these loculated collections over the next 48 hours.
--- NOTE | 2016-06-08 12:33 | CONSULTATION ---
DATE OF CONSULTATION: 06/08/2016 REQUESTING PHYSICIAN: Dr. Edin Benavidez. REASON FOR CONSULTATION: Pneumonia and pleural effusion. HISTORY OF PRESENT ILLNESS: Ms. Avina is a 61-year-old white female with diabetes mellitus and rheumatoid arthritis, on methotrexate, who was diagnosed with poorly differentiated neuroendocrine small cell carcinoma with a CT-guided biopsy on 10/20/2015. She has been under treatment by Dr. Evans. CT scan on 05/16/2016 revealed no evidence of disease and she was referred for cranial irradiation. Approximately 1 week ago, she developed increased cough with purulent sputum production. She presented to [facility] with increasing shortness of breath. She had a fever of 102.9 degrees. Chest x-ray revealed a new infiltrate in the right mid lung zone. CT scan of the thorax performed yesterday reveals dense consolidation in the right upper lobe, along with new right paratracheal adenopathy and subcarinal adenopathy and a small right-sided pleural effusion, which was not present on the CT scan performed 05/16/2016. She was at [facility] and transferred to [facility]. PAST MEDICAL HISTORY: 1. Small-cell carcinoma diagnosed last October, as per above. Most recent CT scan earlier this month revealed no evidence of disease. Bone scan performed 05/25/2016 revealed no evidence of metastatic bony disease. 2. Rheumatoid arthritis, on methotrexate per Dr. Hernadez. 3. Diabetes mellitus. 4. Hypertension. 5. 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 6. Reflux. 7. Chronic pain disorder. SOCIAL HISTORY: Prior tobacco use. No alcohol use listed. ALLERGIES: Codeine, morphine, methadone, and paper tape. REVIEW OF SYSTEMS: As noted in the HPI. The patient is also having some hallucinations. PHYSICAL EXAMINATION: General: Reveals a chronically ill-appearing white female who appears older than her stated age. Vital Signs: Blood pressure 98/56, heart rate 90 respiration rate 18, oxygen saturation 97% on Venturi mask. HEENT: Pupils are equal and reactive. Oropharynx is clear. Neck: Supple. Chest: Reveals diminished breath sounds in the right upper anterior lung mcclain. Coarse rhonchi also noted. Cardiac: Distant heart sounds. Normal S1, normal S2. Abdomen: Soft, without hepatosplenomegaly appreciated. Extremities: Without edema. LABORATORIES: White blood count 9.94, hemoglobin 8.8, platelet count 89,000. Chemistry: Sodium 142, potassium 2.6, chloride 100, bicarbonate 29, BUN 22, creatinine 0.7. IMPRESSION: A 60-year-old immunocompromised host due to treatment for lung cancer, diabetes mellitus, and rheumatoid arthritis on methotrexate, who presents with cough, purulent sputum production, and fevers. The patient has marked change in her CAT scan when compared to 3 weeks ago. Presentation is most consistent with an acute infectious process. She has a small effusion at the right base, which is likely parapneumonic. If it progresses in size, it will require a thoracentesis to ensure she does not have empyema. Although other consultants have suggested this may represent progression of her lung cancer, it would be unusual for her to have such a rapid progression over a 3-week period. RECOMMENDATIONS: 1. Continue broad-spectrum antibiotics as per Dr. Bassett. 2. Attempt to collect 1 additional sputum for culture and sensitivity. Will ask Respiratory Therapy to induce a sputum. 3. Agree with checking immunoglobulin levels to ensure that she is not IgG deficient. 4. Ongoing recommendations pending hospital course.
[2016-06-08] MEDS: MERREM 1 GM in NS 50 ML IV SCH ×2 (13:23→20:12)
[2016-06-08] MEDS: PROTONIX IV SCH (13:26)
[2016-06-08] MEDS ORDERED: VANCOMYCIN 1,700 MG in NS 250 ML IV SCH (20:00)
[2016-06-08] MEDS ORDERED: INSULIN PEN NEEDLES ONE (20:08)
[2016-06-08] MEDS: XANAX PO SCH (20:13)
[2016-06-08] MEDS: LEVEMIR SUBQ SCH (20:13)
[2016-06-08] MEDS: ALDACTONE PO SCH (20:13)
--- NOTE | 2016-06-08 20:39 | CONSULTATION ---
DATE OF CONSULTATION: 06/08/2016 REQUESTING PHYSICIAN: Edin Benavidez MD REASON FOR REFERRAL: Patient known to you. Small cell lung cancer. CHIEF COMPLAINT/HISTORY OF PRESENT ILLNESS: Patient is a 61-year-old female, who was admitted with a 2-3 day history of increasing shortness of breath and a fever of 102.9. Apparently about a week ago she was in excellent shape and they actually celebrated their 1st wedding anniversary in [place]. She rapidly got sick and was admitted to [facility]. CT scan revealed significant consolidation and a pleural effusion. Pulmonary and Infectious Disease have been involved. She is on broad-spectrum antibiotics. She was transfer from [place] to [facility] for further management. She initially presented to us in September 2015 with a right upper lobe mass measuring 2.6 cm. Biopsy revealed small cell lung cancer. She received carboplatin [employer]-16 and radiation therapy and complete on 01/07/2016. Recent scans in the beginning of May revealed excellent control of disease. She was supposed to see Dr. Stratton to receive prophylactic cranial irradiation. PAST MEDICAL HISTORY: Small cell carcinoma as described above. Rheumatoid arthritis, diabetes, hypertension, cirrhosis, reflux. SOCIAL HISTORY: The patient is an ex-smoker. She denies alcohol or substance abuse. ALLERGIES: Codeine, morphine, methadone and paper tape. REVIEW OF SYSTEMS: Patient is confused. Unable to provide much history. PHYSICAL EXAMINATION: General: Patient is in ICU and appears ill. Vital signs: Temperature 98 degrees, pulse 90, blood pressure 98/56. Eyes: EOMI. PERRLA. Anicteric. Mucous membranes appear partly dry. Neck: Supple. Lymph node survey negative. Cardiac: Regular rate and rhythm. Normal S1, S2. Chest: Reveals crackles usp up in the right lung. Decreased air entry at the right base. Abdomen: Protuberant, soft, nontender, without hepatosplenomegaly or masses. Extremities: Reveals 1 to 2+ edema. Neurological: Moving all 4 extremities. LABORATORY DATA: White count 9.9, hemoglobin 8.8, hematocrit 27, MCV 82, platelets 89,000. PT 17, INR 1.36 and PTT 24, BUN 22, creatinine 0.7. IMAGING: CT of the chest: Right upper lobe pneumonia with compressive atelectasis of the right middle and lower lobes. Loculated right pleural effusion, which may represent an empyema. Splenomegaly measuring 14.5 cm. Right paratracheal and subcarinal adenopathy. ASSESSMENT AND PLAN: 1. Small cell lung cancer: She is status post chemotherapy and radiation. Last scans in early May revealed no evidence of disease. She was supposed to have prophylactic cranial radiation from Dr. Stratton. I do not see any evidence of recurrent disease. 2. Right lung pneumonia with right pleural effusion: Dr. Healy and Dr. Bassett are on board. Continue broad-spectrum antibiotics. Subcarinal and mediastinal adenopathy is likely infectious in origin. Continue to monitor for now. 3. Anemia: Check anemia profile. Transfuse as needed. 4. Thrombocytopenia: Likely due to hypersplenism and splenomegaly. She has a history of cirrhosis.
[2016-06-08] MEDS: DILAUDID IV PRN (22:18)
[2016-06-09] MEDS: DILAUDID IV PRN ×3 (01:44→23:47)
[2016-06-09] MEDS: DUONEB (A & A) INH SCH ×6 (03:51→22:55)
[2016-06-09] MEDS: MERREM 1 GM in NS 50 ML IV SCH ×3 (04:28→23:42)
[2016-06-09] MEDS: LASIX IV SCH ×2 (04:31→18:27)
[2016-06-09 04:49] LABS: ALLEN TEST YES; BE 7.1 mmoll (-3.0-3.0); BLOOD TYPE ARTERIAL; DRAW SITE R RADIAL; METHB 1.4 % (0.0-1.5); O2(CT) 18.1 mL/dL (15.0-23.0); PO2(98.6) 70 mmHg (60-100); SAMPLE BLOOD; SAO2 96.1 % (95.0-100.0); THB 13.8 g/dL (11.5-17.4); pH(98.6) 7.42 (7.35-7.45)
[2016-06-09 04:50] LABS: MODALITY CANNULA; PCO2(98.6) 51 mmHg (35-45)
[2016-06-09 05:49] LABS: MAGNESIUM 1.9 mg/dL (1.5-2.7)
[2016-06-09 06:05] LABS: AGAP 14; ALBUMIN 2.3 g/dL (3.5-5.0); ALKALINE PHOSPHATASE 72 U/L (32-104); BUN 24 mg/dL (8-22); CALCIUM 8.3 mg/dL (8.8-10.2); CHLORIDE 96 mmol/L (98-107); COSMO 289; GOT 16 U/L (10-30); GPT 15 U/L (10-36); POTASSIUM 3.2 mmol/L (3.5-5.1); SODIUM 140 mmol/L (136-145); TCO2 30 mmol/L (25-35); TOTAL BILIRUBIN 0.31 mg/dL (0.20-1.00); TOTAL PROTEIN 5.4 g/dL (6.3-8.3)
[2016-06-09] MEDS: HUMALOG SUBQ SCH ×4 (06:39→23:44)
--- NOTE | 2016-06-09 07:31 | Diag Imaging Result Document ---
PROCEDURE NAME: CHEST-PORTABLE - 06/09/2016 SINGLE FRONTAL RADIOGRAPH OF THE CHEST: COMPARISON: 06/05/2016. FINDINGS: Right chest port is in stable position. The dense infiltrate in the right mid lung seen previously appears to have decreased in density during the interval. No new consolidations are identified. Cardiac silhouette is stable. There is stable minimal atelectasis at the left lung base. IMPRESSION: Interval improvement of the dense consolidation on the right.
[2016-06-09] MEDS: MUCOMYST 20% INH SCH (07:50)
[2016-06-09] MEDS: LEVEMIR SUBQ SCH ×2 (08:20→23:45)
[2016-06-09] MEDS: PYRIDIUM PO SCH ×3 (08:21→18:27)
[2016-06-09] MEDS: ROBAXIN PO SCH (08:22)
[2016-06-09] MEDS: LEXAPRO PO SCH (08:22)
[2016-06-09] MEDS: ZANAFLEX PO SCH ×2 (08:22→23:44)
[2016-06-09] MEDS: XANAX PO SCH ×2 (08:23→23:43)
[2016-06-09] MEDS: SOLU-MEDROL IV SCH ×2 (08:23→23:44)
[2016-06-09] MEDS: FOLIC ACID PO SCH (08:23)
[2016-06-09 09:37] LABS: EOS# 0.02 X1000 (0.0-0.7); EOS% 0.2 % (0.0-10.0); IMM GRAN# 0.02 X1000 (0.0-0.04); IMM GRAN% 0.2 % (0.0-0.5); LYMPH# 0.16 X1000 (1.2-3.4); MANUAL DIFF NEEDED? YES; MCH 26.2 PG (27-31); MCHC 32.1 g/dL (33-37); MCV 81.4 FL (81-99); MONO# 0.29 X1000 (0.11-0.59); MONO% 3.6 % (1.7-9.3); MPV 12.1 FL (7.4-10.4); PLT 116 X1000 (130-400); RBC 3.44 XMIL (4.2-5.4)
[2016-06-09 09:43] LABS: BANDS 2 % (0-1); LYMPHS 4 % (21-51); MONO 4 % (1-9)
[2016-06-09] MEDS: KLOR-CON PO SCH ×2 (09:48→23:43)
[2016-06-09] MEDS ORDERED: POTASSIUM CHLORIDE 60 MEQ in NS 500 ML IV ONE (10:00)
--- NOTE | 2016-06-09 11:18 | PROGRESS NOTE ---
DATE: 06/09/2016 SUBJECTIVE: Patient is more alert today. The patient denies any shortness of breath, any fever or chills. OBJECTIVE: Vital Signs: Temperature 97.9 degrees, heart rate 82, respiratory rate 17, blood pressure 118/63, O2 saturation 95% on 5 L nasal cannula. General Examination: This is a chronically ill appearing, and frail 60-year-old female lying in bed, in no acute distress. HEENT: Head is normocephalic, atraumatic. Anicteric sclerae and pale conjunctivae. Mucous membranes dry. Neck: Supple. No JVD noted. No carotid bruits. No lymphadenopathy. No thyromegaly. Cardiovascular: S1, S2 heard. No gallops or rubs. There is a systolic murmur in the mitral area. No radiation. Respiratory: Decreased breath sounds globally with some coarse breath sounds in both bases. The patient using nasal cannula. Patient is not using any accessory muscles or having work of breathing. Abdomen: Soft, nontender to palpation. Bowel sounds present. No organomegaly. Extremities: No clubbing, cyanosis, or edema. Peripheral pulses present in both legs. Neurological: Patient is sleepy but definitely answers to verbal stimuli. Answers basic questions. Moves 4 extremities. LABORATORY DATA: White cell count 8.15, hemoglobin 9.0, hematocrit 28.0, platelets 116,000. ABG shows pH 7.42 with pCO2 51, PO2 70. Sodium 140, potassium 3.2, chloride 96, bicarb 30, BUN 24, creatinine 0.6. ASSESSMENT AND PLAN: 1. Acute respiratory failure secondary to pneumonia. White cell count is back to normal. Currently this patient is receiving vancomycin and meropenem as per Dr. Bassett who is following this patient. The patient is requiring high amounts of oxygen by now being given by nasal cannula. Dr. Healy from Pulmonary was consulted and he thinks that this is an infectious process so he is okay with continuing with antibiotics. He then mentioned that this patient will need a chest tube placement or any other procedure. We are going to watch her closely. Also, Dr. Evans has been consulted. At this point, we are going to continue following leads from subspecialists. 2. Small cell lung cancer status post chemotherapy and radiation. According to Dr. Evans last scan was done at the beginning of this month. Did not reveal any evidence of home of disease and according to him the patient was supposed to have radiation therapy from Dr. Stratton. At this point, we will follow his recommendations. 3. Thrombocytopenia. That is secondary to hypersplenism and splenomegaly. The platelet count is getting better. We will continue with same management. 4. Anemia. Profile is still pending. We will leave the management to Hematology. 5. Diabetes mellitus type 2. Yesterday we have increased the doses of Levemir and today the glucose is still high. We will see today how this patient does. Otherwise we will continue increasing the doses of Levemir. MTDD
--- NOTE | 2016-06-09 13:37 | PROGRESS NOTE ---
DATE: 06/09/2016 SUBJECTIVE: Improved respiratory status. She is on nasal cannula this morning. Seems to be breathing comfortably. OBJECTIVE: Vital signs: No fevers overnight. She is not tachycardic. Blood pressure 97/51. General: She is alert. She is on nasal cannula. No increased work of breathing. Cardiovascular: Normal rate. Regular rhythm. LABS: Reviewed. White count is normal at 8. ABG 7.42, 51, 70. Creatinine 0.6. I reviewed her chest x-ray. Some improvement in the right side lung opacity and consolidation. I do not see an obvious effusion on chest x-ray this morning. ASSESSMENT AND PLAN: A 60-year-old female with small-cell lung cancer and now with a pneumonia and a loculated parapneumonic effusion. I do not see any gas and obvious suggestion is of empyema here. White count is normal. No fevers. Dr. Bassett is entertaining the idea of an aspiration for antibiotic directed management. However, I think this would be not therapeutic; it would diagnostic. As she is clinically improving it may be reasonable to hold off. I think her ability to cooperate with this procedure would be high and there is always a possibility of developing pneumothorax after this. In the meantime would continue broad-spectrum antibiotics.
[2016-06-09] MEDS: PROTONIX IV SCH (14:31)
--- NOTE | 2016-06-09 16:01 | PROGRESS NOTE ---
DATE: 06/09/2016 PRESENT ILLNESS: The patient currently is being treated for a right-sided pneumonia and for the possibility of an empyema. MEDICATIONS: The patient is receiving vancomycin and meropenem. PHYSICAL EXAMINATION: Vital Signs: Temperature is 98 degrees, pulse is 87, respirations are 20, blood pressure 97/51. General: This is an ill-appearing, middle-aged female, who is in no acute distress. Lungs: Clear to auscultation. Cardiovascular: Heart rate is regular. Abdomen: Soft and nontender. LAB AND X-RAY: Chest x-ray shows improvement in the right lung consolidation. The patient's blood gases show a pH of 7.42, a PO2 of 70, pCO2 of 51. Creatinine 0.6. GFR is greater than 60. Liver function studies are normal. Sputum is growing a normal dl. The patient's immunoglobulin levels are not present at this time. ASSESSMENT AND PLAN: The patient has pneumonia. For now, I am going to continue with vancomycin and meropenem to treat the patient's right lower lobe pneumonia. The patient's comorbidities include the following. The patient has lung cancer. She also has COPD, diabetes mellitus, radiation therapy and chemotherapy, rheumatoid arthritis, gastroesophageal reflux disease, and cirrhosis of the liver. Plan would be to continue with the patient's current antimicrobial regimen.
[2016-06-09] MEDS: VANCOMYCIN 2 GM in NS 500 ML IV SCH (18:27)
[2016-06-09] MEDS: NORCO-10 PO PRN (18:41)
[2016-06-09] MEDS ORDERED: INSULIN PEN NEEDLES ONE (23:22)
[2016-06-09] MEDS: AMITIZA PO SCH (23:43)
[2016-06-09] MEDS: ALDACTONE PO SCH (23:43)
[2016-06-10] MEDS: DUONEB (A & A) INH SCH ×6 (02:40→22:47)
[2016-06-10] MEDS: DILAUDID IV PRN (04:53)
[2016-06-10] MEDS: MERREM 1 GM in NS 50 ML IV SCH ×3 (04:53→21:23)
[2016-06-10] MEDS: LASIX IV SCH ×2 (04:53→16:28)
[2016-06-10 04:59] LABS: ALLEN TEST YES; BE 8.6 mmoll (-3.0-3.0); BLOOD TYPE ARTERIAL; DRAW SITE R RADIAL; METHB 1.4 % (0.0-1.5); O2(CT) 18.4 mL/dL (15.0-23.0); PO2(98.6) 70 mmHg (60-100); SAMPLE BLOOD; SAO2 96.2 % (95.0-100.0); THB 14.1 g/dL (11.5-17.4); pH(98.6) 7.42 (7.35-7.45)
[2016-06-10 05:01] LABS: MODALITY CANNULA
[2016-06-10] MEDS: HUMALOG SUBQ SCH ×4 (06:49→21:35)
[2016-06-10 06:50] LABS: HEMOGLOBIN 9.5 g/dL (12.0-16.0); IMM GRAN# 0.03 X1000 (0.0-0.04); IMM GRAN% 0.4 % (0.0-0.5); LYMPH# 0.18 X1000 (1.2-3.4); LYMPH% 2.1 % (20.5-51.1); MANUAL DIFF NEEDED? YES; MCH 26.1 PG (27-31); MCHC 31.7 g/dL (33-37); MCV 82.4 FL (81-99); MONO# 0.27 X1000 (0.11-0.59); MONO% 3.2 % (1.7-9.3); MPV 11.3 FL (7.4-10.4); NEUT% 94.3 % (42.2-75.2); PLT 138 X1000 (130-400); RBC 3.64 XMIL (4.2-5.4)
[2016-06-10 07:08] LABS: LYMPHS 6 % (21-51); MONO 4 % (1-9)
[2016-06-10 07:20] LABS: AGAP 11; ALBUMIN 2.5 g/dL (3.5-5.0); ALKALINE PHOSPHATASE 82 U/L (32-104); BUN 27 mg/dL (8-22); CALCIUM 8.8 mg/dL (8.8-10.2); CHLORIDE 97 mmol/L (98-107); COSMO 295; GOT 21 U/L (10-30); GPT 20 U/L (10-36); POTASSIUM 3.8 mmol/L (3.5-5.1); SODIUM 141 mmol/L (136-145); TCO2 33 mmol/L (25-35); TOTAL BILIRUBIN 0.35 mg/dL (0.20-1.00); TOTAL PROTEIN 5.6 g/dL (6.3-8.3)
--- NOTE | 2016-06-10 07:40 | Diag Imaging Result Document ---
PROCEDURE NAME: CHEST-PORTABLE - 06/10/2016 PORTABLE CHEST X-RAY: COMPARISON: 06/09/2016. FINDINGS: Stable right chest port in good position. Lung volumes are lower but, otherwise, there is no change in the large right hilar airspace opacity. There is worsening bronchovascular crowding versus infiltrates throughout the aerated portions of the lungs. IMPRESSION: Lower lung volumes with worsening aeration of the lungs, nonspecific.
[2016-06-10] MEDS: MUCOMYST 20% INH SCH ×2 (08:15→20:16)
[2016-06-10] MEDS: PYRIDIUM PO SCH ×3 (09:46→16:28)
[2016-06-10] MEDS: LOVENOX SUBQ SCH (09:46)
[2016-06-10] MEDS: FOLIC ACID PO SCH (09:46)
[2016-06-10] MEDS: LEVEMIR SUBQ SCH ×2 (09:47→21:27)
[2016-06-10] MEDS: LEXAPRO PO SCH (09:47)
[2016-06-10] MEDS: AMITIZA PO SCH ×2 (09:47→21:27)
[2016-06-10] MEDS: KLOR-CON PO SCH ×2 (09:47→21:27)
[2016-06-10] MEDS: SOLU-MEDROL IV SCH ×2 (09:47→21:27)
[2016-06-10] MEDS: XANAX PO SCH ×2 (09:47→21:34)
[2016-06-10] MEDS: ROBAXIN PO SCH (09:47)
[2016-06-10] MEDS: ZANAFLEX PO SCH ×2 (09:47→21:27)
--- NOTE | 2016-06-10 10:06 | PROGRESS NOTE ---
DATE: 06/10/2016 SUBJECTIVE: Patient reports that she does feel improved today. She denies any increasing shortness of breath. Denies any productivity to her cough or any fever or chills. She does report that she did not get much sleep last night, but she felt this was secondary to the environment. OBJECTIVE: Vital Signs: Temperature 97.7 degrees, pulse 82 respirations 16, blood pressure 104/55, O2 saturation 97% on 2 L per nasal cannula. HEENT: Normocephalic, atraumatic. Mucous membranes moist. Neck: Supple. No JVD. Chest: Decreased breath sounds throughout. No accessory muscle use. Respirations unlabored. Cardiovascular: Normal S1, S2. Abdomen: Abdomen is soft, nontender, nondistended. Extremities: No evidence of clubbing, cyanosis, or edema. Neurologic: Patient is alert, oriented, sitting up, answering questions appropriately. DIAGNOSTIC DATA: CBC: White count 8.50, hemoglobin and hematocrit 9.5 and 30, platelets 138. BMP: Sodium 141, potassium 3.8, chloride 97, CO2 33, BUN 27, creatinine 0.7, glucose 253. ABG: A pH 7.42, pCO2 54, PO2 70, bicarbonate 31.5, oxyhemoglobin 93. ASSESSMENT AND PLAN: 1. Acute respiratory failure secondary to pneumonia. Her white count continues to remain normal today. She is also being followed by Dr. Healy and Dr. Bassett, who recommends intravenous vancomycin and meropenem which is continued. She is now down to a nasal cannula and seems to be doing well with that. Will continue to appreciate any recommendations from pulmonology and infectious disease, but condition seems to be improving. 2. Small cell lung cancer status post chemotherapy and radiation. Patient reportedly had a normal scan previously, and also had a bone scan with no metastatic disease shown. 3. Thrombocytopenia. This is actually resolved today. 4. Deep vein thrombosis prophylaxis. We will continue with Lovenox. 5. Anemia. Will continue to leave the management to hematology. 6. Type 2 diabetes. She continues to have some hyperglycemia. Can ingest Levemir as needed; currently she is on 25 units twice daily; however, on my assessment she was drinking a regular Mountain Dew, had just had breakfast, and I am not sure how she does with her dietary restrictions as well. Further orders pending physician evaluation. Patient seen and examined. Agree with CUT IN WORKER note. It reflects my assessment and plan. Patient still requiring high amounts of oxygen and by now on 5 lt by nasal cannula. Will keep her over the weekend and will she how she does. Dictated by [facility] Walker for Edin Benavidez MD MTDD
--- NOTE | 2016-06-10 11:50 | PROGRESS NOTE ---
DATE: 06/10/2016 PRESENT ILLNESS: The patient is being treated for a right-sided pneumonia and possible empyema. MEDICATIONS: The patient is receiving vancomycin and meropenem. This is day 2 of treatment of the patient with both antibiotics. PHYSICAL EXAMINATION: Vital Signs: Temperature is 97.7, the pulse is 82, respirations 16, blood pressure 104/55. General: This is an ill-appearing, middle-aged female. She is in no acute distress. She even walked in the [place] today. Lungs: Clear to auscultation. Cardiovascular: Heart rate is regular. Abdomen: Soft and nontender. LAB AND X-RAY: A chest x-ray shows no change in the right hilar opacity. There is no mention of fluid remaining. The patient's blood gases show a pH of 7.42, a pO2 of 70, pCO2 of 54. The creatinine is 0.7. GFR is greater than 60. Patient's CBC shows a white count of 8500, hemoglobin 9.5, and platelet count 138,000. Liver function studies are normal. ASSESSMENT AND PLAN: The patient has pneumonia. It does not appear that she does have an empyema at this time. My plan would be to continue treatment with vancomycin and meropenem because the patient appears to be improving. COMORBIDITIES: The patient has quite a few comorbidities and they include lung cancer, COPD, diabetes mellitus, radiation therapy, chemotherapy, rheumatoid arthritis, gastroesophageal reflux disease and cirrhosis of the liver.
--- NOTE | 2016-06-10 13:44 | PROGRESS NOTE ---
DATE: 06/10/2016 SUBJECTIVE: Feels okay, more alert. No shortness of breath. OBJECTIVE: No fevers. No tachycardia. Oxygen saturations on 5 L nasal cannula 97%.General: She is alert. She is breathing comfortably. Cardiovascular: Normal rate, regular rhythm. LAB: White counts normal. ABG stable for her. Creatinine 0.7. ASSESSMENT: This is a 60-year-old female with small cell lung cancer now pneumonia and parapneumonic effusion, unlikely empyema given her rapid improvement with antibiotics alone. We are monitoring as she is improving will hold off on any percutaneous aspiration of this fluid as it does not seem to be causing significant compression and contributing to her pulmonary status. Also would set her up for a possible iatrogenic complication which she does not need at this point. Follow along. cc: Winnie Mera MD MTDD
[2016-06-10] MEDS: SODIUM CHLORIDE 0.9% INJ SCH (14:05)
[2016-06-10] MEDS: PROTONIX IV SCH (14:05)
[2016-06-10] MEDS: NORCO-10 PO PRN ×2 (14:05→21:34)
[2016-06-10] MEDS: VANCOMYCIN 2 GM in NS 500 ML IV SCH (18:17)
[2016-06-10] MEDS: ALDACTONE PO SCH (21:27)
[2016-06-11] MEDS: DUONEB (A & A) INH SCH ×6 (03:30→23:10)
[2016-06-11] MEDS: MERREM 1 GM in NS 50 ML IV SCH ×2 (05:00→14:35)
[2016-06-11] MEDS: LASIX IV SCH ×2 (05:00→17:55)
[2016-06-11] MEDS: HUMALOG SUBQ SCH ×3 (07:00→17:55)
[2016-06-11] MEDS: MUCOMYST 20% INH SCH ×2 (07:45→19:25)
[2016-06-11] MEDS: LOVENOX SUBQ SCH (09:00)
[2016-06-11] MEDS: LEVEMIR SUBQ SCH (09:00)
[2016-06-11] MEDS: LEXAPRO PO SCH (09:00)
[2016-06-11] MEDS: AMITIZA PO SCH (09:00)
[2016-06-11] MEDS: XANAX PO SCH (09:00)
[2016-06-11] MEDS: ROBAXIN PO SCH (09:00)
[2016-06-11] MEDS: KLOR-CON PO SCH (09:00)
[2016-06-11] MEDS: SOLU-MEDROL IV SCH (09:00)
[2016-06-11] MEDS: FOLIC ACID PO SCH (09:00)
[2016-06-11] MEDS: ZANAFLEX PO SCH (09:00)
[2016-06-11] MEDS: PYRIDIUM PO SCH ×3 (09:00→17:55)
[2016-06-11] MEDS: NORCO-10 PO PRN (11:15)
--- NOTE | 2016-06-11 14:19 | PROGRESS NOTE ---
DATE: 06/11/2016 SUBJECTIVE: The patient reports feeling better. The patient is able to walk around the hallways. She denies any shortness of breath. Denies any fever or chills. OBJECTIVE: Vital Signs: The patient is on nasal cannula at 3 L/minute. Heart rate is 84. Temperature is 97.9 degrees, respiratory rate 18, blood pressure 130/90. General: This is a 60- year-old chronically ill-looking, frail, female lying in bed in no acute distress. HEENT: Head is normocephalic and atraumatic. Anicteric sclerae and pale conjunctivae. Mucous membranes moist. Neck supple. No JVD. No carotid bruits. No lymphadenopathy. No thyromegaly. Cardiovascular: S1, S2 heard. No murmurs, gallops, or rubs. Regular rate and rhythm. Respiratory: Decreased breath sounds globally. The patient is not using any accessory muscles or having work of breathing. Abdomen is soft, nontender to palpation. Bowel sounds present. No organomegaly. Extremities: No clubbing, cyanosis, or edema. Peripheral pulses present in both legs. Neurologic: The patient is alert and oriented x3. Able to move 4 extremities. LABORATORY DATA: The white blood cell count is 4.25 with hemoglobin of 8.8. BMP is completely okay. Platelets is 104,000. ASSESSMENT AND PLAN: 1. Acute respiratory failure secondary to pneumonia. White cell count continues to remain within normal limits. Dr. Healy from Pulmonary is following this patient. Also, Dr. Bassett from Infectious Disease is following as well. Vancomycin meropenem is being given to this patient today, 06/11/2016. We will continue with the same management. 2. Small cell lung cancer, status post chemotherapy and radiation. Dr. Reddy from Hematology- Oncology is following this patient. 3. Thrombocytopenia. The platelet count is 104,000 today. We will continue checking CBC daily. 4. Anemia of chronic disease. We will leave that management to Hematology. 5. Diabetes, type 2. Currently, this patient is more awake and more alert, so we have continued with Levemir 25 units b.i.d. We will continue checking Accu-Cheks every 4 hours. 6. Physical deconditioning. The patient is working with physical therapy and doing a good job. I do not think this patient is going to need a rehab facility. DISPOSITION: The patient is going to be kept over the weekend, and we will see how long Dr. Bassett plans to continue with antibiotics. The patient has a Port-A-Cath placed. I guess we can use it if home IV antibiotics is required. cc: Edin Benavidez MD
[2016-06-11] MEDS: SODIUM CHLORIDE 0.9% INJ SCH (14:35)
[2016-06-11] MEDS: PROTONIX IV SCH (14:35)
--- NOTE | 2016-06-11 15:42 | Diag Imaging Result Document ---
PROCEDURE NAME: CHEST-2 VIEWS - 06/11/2016 TWO VIEWS OF THE CHEST: FINDINGS: There is marked improvement in the opacification and volume loss in the right lower lobe and middle lobe present on 06/10/2016. The right apex is also clearer than it was. IMPRESSION: Improved inspiration and atelectasis.
[2016-06-11 16:33] LABS: ALLEN TEST YES; BE 13.6 mmoll (-3.0-3.0); BLOOD TYPE ARTERIAL; DRAW SITE R RADIAL; PCO2(98.6) 38 mmHg (35-45); PO2(98.6) 130 mmHg (60-100); SAMPLE BLOOD
[2016-06-11 18:11] LABS: AGAP 10; ALBUMIN 2.4 g/dL (3.5-5.0); ALKALINE PHOSPHATASE 71 U/L (32-104); BUN 25 mg/dL (8-22); CALCIUM 8.3 mg/dL (8.8-10.2); CHLORIDE 96 mmol/L (98-107); COSMO 290; GOT 16 U/L (10-30); GPT 17 U/L (10-36); POTASSIUM 4.1 mmol/L (3.5-5.1); SODIUM 140 mmol/L (136-145); TCO2 34 mmol/L (25-35); TOTAL BILIRUBIN 0.29 mg/dL (0.20-1.00); TOTAL PROTEIN 5.1 g/dL (6.3-8.3)
[2016-06-11 18:14] LABS: MODALITY CANNULA; pH(98.6) 7.59 (7.35-7.45)
[2016-06-11] MEDS: VANCOMYCIN 2 GM in NS 500 ML IV SCH (18:50)
[2016-06-11 18:53] LABS: HEMATOCRIT 28.2 % (37.0-47.0); HEMOGLOBIN 8.8 g/dL (12.0-16.0); IMM GRAN# 0.04 X1000 (0.0-0.04); IMM GRAN% 0.9 % (0.0-0.5); LYMPH# 0.23 X1000 (1.2-3.4); LYMPH% 5.4 % (20.5-51.1); MANUAL DIFF NEEDED? YES; MCHC 31.2 g/dL (33-37); MCV 83.2 FL (81-99); MONO# 0.23 X1000 (0.11-0.59); MONO% 5.4 % (1.7-9.3); MPV 10.8 FL (7.4-10.4); NEUT% 88.3 % (42.2-75.2); PLT 104 X1000 (130-400); RBC 3.39 XMIL (4.2-5.4)
[2016-06-11 19:11] LABS: LYMPHS 10 % (21-51); MONO 8 % (1-9)
[2016-06-12] MEDS: MERREM 1 GM in NS 50 ML IV SCH ×3 (00:33→18:00)
[2016-06-12] MEDS: SOLU-MEDROL IV SCH ×3 (00:37→21:10)
[2016-06-12] MEDS: AMITIZA PO SCH ×3 (00:37→21:10)
[2016-06-12] MEDS: ZANAFLEX PO SCH ×3 (00:37→21:10)
[2016-06-12] MEDS: KLOR-CON PO SCH ×3 (00:37→21:10)
[2016-06-12] MEDS: XANAX PO SCH ×3 (00:37→21:10)
[2016-06-12] MEDS: ALDACTONE PO SCH ×2 (00:37→21:10)
[2016-06-12] MEDS: HUMALOG SUBQ SCH ×5 (00:41→21:27)
[2016-06-12] MEDS: DUONEB (A & A) INH SCH ×6 (02:45→22:38)
[2016-06-12 04:44] LABS: ALLEN TEST YES; BE 14.1 mmoll (-3.0-3.0); BLOOD TYPE ARTERIAL; DRAW SITE R RADIAL; METHB 1.7 % (0.0-1.5); O2(CT) 11.8 mL/dL (15.0-23.0); PCO2(98.6) 47 mmHg (35-45); PO2(98.6) 67 mmHg (60-100); SAMPLE BLOOD; SAO2 96.4 % (95.0-100.0); THB 8.9 g/dL (11.5-17.4); pH(98.6) 7.52 (7.35-7.45)
[2016-06-12 04:45] LABS: MODALITY CANNULA
[2016-06-12] MEDS: LEVEMIR SUBQ SCH ×3 (05:05→21:27)
[2016-06-12] MEDS: NORCO-10 PO PRN (05:17)
[2016-06-12] MEDS: LASIX IV SCH ×2 (05:18→18:08)
[2016-06-12 07:16] LABS: BASO% 0.2 % (0.0-0.8); HEMATOCRIT 28.7 % (37.0-47.0); HEMOGLOBIN 8.9 g/dL (12.0-16.0); IMM GRAN# 0.06 X1000 (0.0-0.04); IMM GRAN% 1.1 % (0.0-0.5); LYMPH# 0.23 X1000 (1.2-3.4); LYMPH% 4.3 % (20.5-51.1); MANUAL DIFF NEEDED? YES; MCH 25.9 PG (27-31); MCV 83.4 FL (81-99); MONO# 0.26 X1000 (0.11-0.59); MONO% 4.8 % (1.7-9.3); MPV 10.8 FL (7.4-10.4); NEUT% 89.6 % (42.2-75.2); PLT 108 X1000 (130-400); RBC 3.44 XMIL (4.2-5.4)
[2016-06-12] MEDS: MUCOMYST 20% INH SCH ×2 (07:20→19:23)
[2016-06-12 07:28] LABS: AGAP 8; ALBUMIN 2.5 g/dL (3.5-5.0); ALKALINE PHOSPHATASE 71 U/L (32-104); BUN 22 mg/dL (8-22); CALCIUM 8.1 mg/dL (8.8-10.2); CHLORIDE 96 mmol/L (98-107); COSMO 287; GOT 13 U/L (10-30); GPT 18 U/L (10-36); POTASSIUM 3.8 mmol/L (3.5-5.1); SODIUM 139 mmol/L (136-145); TCO2 35 mmol/L (25-35); TOTAL BILIRUBIN 0.34 mg/dL (0.20-1.00); TOTAL PROTEIN 5.3 g/dL (6.3-8.3)
[2016-06-12 08:21] LABS: BANDS 4 % (0-1); HYPOCHROM OCCASIONAL; LYMPHS 6 % (21-51); MONO 4 % (1-9)
[2016-06-12] MEDS: NAPROSYN PO SCH ×2 (10:15→21:10)
[2016-06-12] MEDS: PYRIDIUM PO SCH ×3 (10:15→18:00)
[2016-06-12] MEDS: LEXAPRO PO SCH (10:15)
[2016-06-12] MEDS: LOVENOX SUBQ SCH (10:15)
[2016-06-12] MEDS: FOLIC ACID PO SCH (10:16)
[2016-06-12] MEDS: ROBAXIN PO SCH (10:16)
[2016-06-12] MEDS ORDERED: DIFLUCAN PO SCH (11:45)
[2016-06-12] MEDS: DILAUDID IV PRN (12:23)
[2016-06-12] MEDS: OFIRMEV 1000 MG/ISOTONIC SOLN 1,000 MG/100 ML BOTTLE IV SCH ×2 (12:24→18:00)
--- NOTE | 2016-06-12 15:41 | PROGRESS NOTE ---
DATE: 06/12/2016 SUBJECTIVE: Patient reports feeling better. She reports walking in the hallways. Not getting any short of breath. Denies any fever or chills. OBJECTIVE: Vital Signs: Temperature 97.5 degrees, heart rate 77, respiratory rate 16, blood pressure 119/55, O2 saturation is 97% on 3 L nasal cannula. General examination: This is a 60- year-old, chronically ill-looking, and frail-looking, older than her age, female lying in bed, in no acute distress. HEENT: Head is normocephalic, atraumatic. Anicteric sclerae. Pale conjunctivae. Mucous membranes moist. Neck: Supple. No JVD noted. No carotid bruits. No lymphadenopathy. No thyromegaly. Cardiovascular: S1, S2 heard. No murmurs, gallops, or rubs. Regular rate and rhythm. Respiratory: Clear bilaterally to auscultation. No work of breathing or using accessory muscles. Abdomen: Soft. Nontender to palpation. Bowel sounds present. No organomegaly. Extremities: No clubbing, cyanosis, or edema. Peripheral pulses present in both legs. Neurological: Patient is alert and oriented x3. Able to move her extremities. Cranial nerves 2 through 12 grossly normal. LABORATORY DATA: White cell count 5.38, hemoglobin 8.9, hematocrit 28.7, platelets . BMP is unremarkable except mild elevation of glucose 216. ASSESSMENT AND PLAN: 1. Acute respiratory failure secondary to pneumonia. White blood cell count remains within normal limits. Patient oxygen needs were coming down from admission on Venturi mask with up to 50% of oxygen to now 3 L by nasal cannula. I think definitely this patient is improving. Vancomycin and meropenem is being given to this patient and today so far she has received five days of both antibiotics. I am going to continue with both medications. Dr. Bassett from infectious disease is following this patient. Tomorrow we are going to talk to him to figure out how long this patient will need antibiotics and if those need to be given IV or can be changed to oral. Definitely this patient will need oxygen at discharge. outside maintenance worker has been notified about this need. 2. Small-cell lung cancer status post chemotherapy and radiation. Dr. Reddy from hematology/oncology is following this patient. No new recommendations today. 3. Thrombocytopenia. The platelet count is better. We will continue checking CBC daily. 4. Anemia of chronic disease. We will leave the management of this condition to hematology/oncology. Currently the hemoglobin today is 8.9 which has been the same for the last previous day. 5. Diabetes type 2. Glucose continues to be high so we have increased the Levemir to 30 units b.i.d. and we will continue checking Accu-Cheks before bedtime and at bedtime. 6. Physical deconditioning. Physical therapy is working with this patient. This patient is basically doing a good job, so I do not think this patient will need a rehab facility. I think only home health will be needed. 7. Disposition. Patient will go home tomorrow probably with home health and will see what antibiotics she is going to continue with at home. cc: Edin Benavidez MD
[2016-06-12] MEDS: DIFLUCAN 150 MG/NS 150 MG/75 ML IVPB IV SCH (16:28)
[2016-06-12] MEDS: VANCOMYCIN 2 GM in NS 500 ML IV SCH (18:15)
[2016-06-12] MEDS ORDERED: REMERON PO SCH (21:00)
[2016-06-13] MEDS: OFIRMEV 1000 MG/ISOTONIC SOLN 1,000 MG/100 ML BOTTLE IV SCH (00:19)
[2016-06-13] MEDS: MERREM 1 GM in NS 50 ML IV SCH ×3 (00:36→17:08)
[2016-06-13] MEDS: DUONEB (A & A) INH SCH ×5 (03:32→19:37)
[2016-06-13] MEDS: LASIX IV SCH ×2 (05:58→17:48)
[2016-06-13] MEDS: HUMALOG SUBQ SCH ×3 (06:01→17:48)
[2016-06-13] MEDS ORDERED: PRILOSEC PO SCH (07:00)
[2016-06-13 07:23] LABS: HEMATOCRIT 28.7 % (37.0-47.0); HEMOGLOBIN 8.9 g/dL (12.0-16.0); IMM GRAN# 0.05 X1000 (0.0-0.04); LYMPH# 0.28 X1000 (1.2-3.4); LYMPH% 5.8 % (20.5-51.1); MANUAL DIFF NEEDED? YES; MCH 26.1 PG (27-31); MCV 84.2 FL (81-99); MONO# 0.22 X1000 (0.11-0.59); MONO% 4.6 % (1.7-9.3); MPV 10.9 FL (7.4-10.4); NEUT% 88.6 % (42.2-75.2); PLT 91 X1000 (130-400); RBC 3.41 XMIL (4.2-5.4)
[2016-06-13] MEDS: MUCOMYST 20% INH SCH ×2 (07:25→19:37)
[2016-06-13 07:44] LABS: BANDS 4 % (0-1); LYMPHS 10 % (21-51)
[2016-06-13 07:53] LABS: AGAP 9; ALBUMIN 2.5 g/dL (3.5-5.0); ALKALINE PHOSPHATASE 68 U/L (32-104); BUN 23 mg/dL (8-22); CALCIUM 8.2 mg/dL (8.8-10.2); CHLORIDE 96 mmol/L (98-107); COSMO 286; GOT 13 U/L (10-30); GPT 16 U/L (10-36); POTASSIUM 4.1 mmol/L (3.5-5.1); SODIUM 139 mmol/L (136-145); TCO2 34 mmol/L (25-35); TOTAL BILIRUBIN 0.34 mg/dL (0.20-1.00); TOTAL PROTEIN 5.1 g/dL (6.3-8.3)
--- NOTE | 2016-06-13 08:19 | Diag Imaging Result Document ---
PROCEDURE NAME: CHEST-2 VIEWS - 06/13/2016 TWO VIEWS OF THE CHEST: FINDINGS: There is slightly worsened subsegmental atelectasis in the left lower lobe since 06/11/2016. The perihilar opacity which was present previously in the right upper lobe has diminished in its extent. Otherwise, there has been no significant change. IMPRESSION: Slight diminishment in right upper lobe opacity. Slight worsening atelectasis.
[2016-06-13 08:21] LABS: ALLEN TEST YES; BE 14.2 mmoll (-3.0-3.0); BLOOD TYPE ARTERIAL; DRAW SITE R RADIAL; METHB 1.8 % (0.0-1.5); O2(CT) 12.8 mL/dL (15.0-23.0); PCO2(98.6) 46 mmHg (35-45); PO2(98.6) 55 mmHg (60-100); SAMPLE BLOOD; SAO2 93.4 % (95.0-100.0); pH(98.6) 7.53 (7.35-7.45)
[2016-06-13 08:22] LABS: MODALITY ROOM AIR
[2016-06-13] MEDS: SOLU-MEDROL IV SCH (09:44)
[2016-06-13] MEDS: PYRIDIUM PO SCH ×3 (09:44→17:49)
[2016-06-13] MEDS: ZANAFLEX PO SCH (09:44)
[2016-06-13] MEDS: LEXAPRO PO SCH (09:44)
[2016-06-13] MEDS: FOLIC ACID PO SCH (09:45)
[2016-06-13] MEDS: ROBAXIN PO SCH (09:45)
[2016-06-13] MEDS: KLOR-CON PO SCH (09:45)
[2016-06-13] MEDS: XANAX PO SCH (09:45)
[2016-06-13] MEDS: LEVEMIR SUBQ SCH (09:45)
[2016-06-13] MEDS: AMITIZA PO SCH (09:45)
[2016-06-13] MEDS: NAPROSYN PO SCH (09:45)
[2016-06-13] MEDS: LOVENOX SUBQ SCH (09:45)
[2016-06-13 11:34] LABS: PCO2(98.6) 54 mmHg (35-45)
[2016-06-13] MEDS: DIFLUCAN 150 MG/NS 150 MG/75 ML IVPB IV SCH (14:27)
[2016-06-13 14:32] LABS: INR 1.28; PROTIME 13.7 Seconds (9.2-11.7)
--- NOTE | 2016-06-13 14:47 | PROGRESS NOTE ---
DATE: 06/13/2016 PRESENT ILLNESS: The patient is being treated for a right-sided pneumonia and there may be a possible empyema. MEDICATIONS: The patient is getting vancomycin and meropenem. She also has been put on fluconazole by another physician. The patient is getting Mycostatin swish and swallow. PHYSICAL EXAMINATION: Vital Signs: Temperature is 97.8 degrees, pulse 74, respirations 16, blood pressure is 118/56. Generally: This is a somewhat ill-appearing middle-aged female. She is in no acute distress. Ears, Nose, and Throat: The patient's tongue has some whitish and brownish exudates on her tongue and her tongue is sore. Lungs: Clear to auscultation. Cardiovascular: Regular heart rate. Abdomen: Soft and nontender. Chest: Patient has a Port-A-Cath in place on the right side. The Port-A-Cath site is not erythematous or swollen. LAB AND X-RAY: Chest x-ray shows a decrease in the right upper lobe infiltrate. Creatinine 0.6. GFR is greater than 60. The patient's arterial blood gases show a pH of 7.53, a pO2 of 55, and a pCO2 of 46. The patient's CBC shows a white count of 4820, hemoglobin 8.9, and platelet count 91,000. Sputum is growing normal dl. ASSESSMENT AND PLAN: My plan is to continue the patient on vancomycin and meropenem at home. The patient already has IV access through a Port-A-Cath on the right side of the chest. I put a consult in for [facility] to supply the patient's home IV antibiotics. She is getting vancomycin 2 g IV every 24 hours and meropenem 1 g IV every 8 hours. The patient appears to have oral candidiasis. The patient has a pneumonia with possible empyema. I think she has oral candidiasis. I have consulted [facility] to supply the patient's home IV antibiotics and I have transmitted a prescription for Mycostatin to the patient's pharmacy. I plan to see the patient back in my office in 2 weeks. COMORBIDITIES: Include the fact she has lung cancer, chronic obstructive pulmonary disease, diabetes mellitus, radiation therapy, chemotherapy, rheumatoid arthritis, gastroesophageal reflux disease, and cirrhosis of the liver. cc: Mahamed Bassett MD
[2016-06-13 15:05] VITALS: BP 97/50
[2016-06-13] MEDS: VANCOMYCIN 2 GM in NS 500 ML IV SCH (17:49)
[2016-06-13] MEDS ORDERED: HEPARIN INJ ONE (20:46)
[2016-06-13] MEDS: DILAUDID IV PRN (21:08)
--- NOTE | 2016-06-14 01:43 | DISCHARGE SUMMARY ---
ADMISSION DATE: 06/04/2016 DISCHARGE DATE: 06/13/2016 CONSULTATIONS: 1. Dr. Juanpablo Mera with General Surgery. 2. Dr. Cole Healy with Pulmonology. 3. Dr. Evans with Hematology/Oncology. 4. Dr. Mahamed Bassett, with Infectious Disease. PERTINENT PROCEDURES: Chest CT showed markedly worsened right upper lobe pneumonia, and compressive atelectasis of the right middle and lower lobes, right pleural effusion, which may represent an empyema. Final chest x-ray on 06/13, showed slight diminishment in right upper lobe opacity, slightly worsening atelectasis. DISCHARGE DIAGNOSES: 1. Acute respiratory failure, secondary to pneumonia. The patient has been weaned off her O2. She is tolerating room air. 2. Pneumonia and parapneumonic effusion. Continue with antibiotics as per Dr. Mahamed Bassett. 3. Small cell lung cancer, status post chemotherapy and radiation, followed by Dr. Reddy. 4. Thrombocytopenia, stable. 5. Anemia of chronic disease. 6. Diabetes mellitus type 2. Continue with home medications. 7. Physical deconditioning. The patient has been working with physical therapy. She declined rehab services. Patient will go home with home health. HOSPITAL COURSE: Briefly, Ms. Katie Avina is a 60-year-old female, with a history of lung cancer, status post radiation and chemotherapy, COPD, diabetes mellitus, hypertension, rheumatoid arthritis, GERD, cirrhosis, presumably DRISCOLL, chronic pain disorder. Patient reported on the day of admission, she had been sick for about 2 weeks. She had a productive cough with dark sputum, subjective fevers, worse 24 hours prior to admission. She came to the ED in respiratory distress. She was placed on Bi-PAP, and she was given breathing treatments. The patient did have a significant right lower lobe infiltrate. She was admitted for further treatment. She was started on breathing treatments, as well as, aggressive pulmonary toilet. She was started on vancomycin, Zosyn and Levaquin. She did have a CT of her thorax, that showed likely worsened right upper lobe pneumonia and compressive atelectasis of the right lower middle lobe, and a loculated right pleural effusion, that may represent an empyema. Dr. Juanpablo Mera was consulted. He recommended to continue antibiotic treatment for the severe pneumonia in the setting of lung cancer and parapneumonic effusion. There was no surgical intervention needed at that time. Dr. Evans was also consulted. It was felt that the subcoronal and mediastinal adenopathy was likely infectious in origin. I do not see any evidence of recurrent disease. Dr. Healy also agreed with broad- spectrum antibiotics as per Dr. Bassett. They felt it was unlikely an empyema given her rapid improvement with antibiotics alone. They were holding off on any percutaneous aspiration of the fluid, as it did not seem to be causing significant compression. The patient was able to get up and walk in the hallway. She was not having any shortness of breath. She had been weaned down from a Venturi mask, to 3 L nasal cannula O2, requiring no oxygen. Initially Dr. Doe felt that the patient would need O2 at the time of discharge, however, he states that she has been tolerating room air at this time and will not be requiring any home O2. The patient was working well with physical therapy. Again, patient declined rehab, but was open to Home Health. The patient is being discharged today with antibiotic recommendation from Dr. Mahamed Bassett. VITAL SIGNS AT TIME OF DISCHARGE: Temperature is 97.8, heart rate 76, respirations 18, blood pressure 118/76, O2 is 95%. DISCHARGE MEDICATIONS: As per Dr. Doe and Dr. Mahamed Bassett for antibiotics. FOLLOWUP: Patient is being discharged home with home health. She will need to follow up with her primary care physician, as well as, Dr. Mahamed Bassett and Dr. Evans. Patient can return to the ED for any worsening of symptoms. DISCHARGE TIME: 30 minutes. Dictated by [facility] for Edin Benavidez MD cc: Edin Benavidez MD
== END 2016-06-13 21:40 | disposition home health service (06) ==
LOC: P.ED 18:28 → P.ICU 21:53 → ICU 06-08 00:53 → 3N 06-09 11:41 → SURHOLD 06-11 13:45 → 3N 06-11 13:46
PROVIDERS: ATTEND Internal Medicine

== ENCOUNTER 2016-09-23 10:37 | Observation (INO) ==
[2016-09-23] MEDS ORDERED: NS 1,000 ML IV ONE ×2 (10:49→12:57)
[2016-09-23] MEDS ORDERED: OFIRMEV 1000 MG/ISOTONIC SOLN 1,000 MG/100 ML BOTTLE IV SCH (11:00)
[2016-09-23 11:51] LABS: URINE CULTURE NEEDED? NO; URINE MICRO REVIEW NEEDED? NO; URINE SOURCE CATH
[2016-09-23 11:58] LABS: BILIRUBIN URINE NEGATIVE (NEGATIVE); BLOOD URINE NEGATIVE (NEGATIVE); COLOR YELLOW; GLUCOSE URINE NEGATIVE (NEGATIVE); LEUKOCYTES URINE NEGATIVE (NEGATIVE); NITRITE URINE NEGATIVE (NEGATIVE); PROTEIN URINE 30 mg/dL (NEGATIVE); SP GRAVITY URINE 1.027; TURBIDITY URINE HAZY (CLEAR); UROBILINOGEN URINE 2 mg/dL (NORMAL)
[2016-09-23 11:59] LABS: UR EPITHELIAL CELLS <10 /HPF (<10); URINE BACTERIA NEGATIVE /HPF; URINE RBC <10 /HPF (<10); URINE WBC <10 /HPF (<10)
[2016-09-23 12:04] LABS: AGAP 13; ALBUMIN 2.9 g/dL (3.5-5.0); ALKALINE PHOSPHATASE 56 U/L (32-104); BUN 12 mg/dL (8-22); CALCIUM 8.1 mg/dL (8.8-10.2); CHLORIDE 95 mmol/L (98-107); COSMO 272; GOT 20 U/L (10-30); GPT 14 U/L (10-36); MAGNESIUM 1.6 mg/dL (1.5-2.7); POTASSIUM 3.1 mmol/L (3.5-5.1); SODIUM 134 mmol/L (136-145); TCO2 26 mmol/L (25-35); TOTAL BILIRUBIN 0.79 mg/dL (0.20-1.00); TOTAL PROTEIN 6.3 g/dL (6.3-8.3)
[2016-09-23 12:06] LABS: BASO% 0.4 % (0.0-0.8); EOS# 0.01 X1000 (0.0-0.7); EOS% 0.2 % (0.0-10.0); HEMATOCRIT 33.2 % (37.0-47.0); HEMOGLOBIN 10.2 g/dL (12.0-16.0); LYMPH# 0.36 X1000 (1.2-3.4); LYMPH% 7.6 % (20.5-51.1); MANUAL DIFF NEEDED? NO; MCH 27.8 PG (27-31); MCHC 30.7 g/dL (33-37); MCV 90.5 FL (81-99); MONO# 0.42 X1000 (0.11-0.59); MONO% 8.9 % (1.7-9.3); MPV 11.4 FL (7.4-10.4); NEUT% 82.9 % (42.2-75.2); PLT 91 X1000 (130-400); RBC 3.67 XMIL (4.2-5.4)
[2016-09-23] MEDS ORDERED: KLOR-CON PO ONE (12:39)
[2016-09-23] MEDS ORDERED: NS 1,000 ML ONE (12:58)
--- NOTE | 2016-09-23 14:57 | Diag Imaging Result Doc PS360 ---
EXAM: FLAT/UPRIGHT ABD/1 VIEW CHEST HISTORY: generalized weakness, h/o lung ca TECHNIQUE: Three views COMPARISON: Chest is compared to 07/18/2016. FINDINGS: There is a dense area in the mid right lung similar to the prior exam. No change in the position of the right jugular line. No pneumothorax. The left lung remains clear. No free air beneath the diaphragm. No bowel obstruction. The spleen is prominent. There is been extensive surgery to the mid lumbar spine. IMPRESSION: 1.No interval change in the mid right lung density/mass 2.Splenomegaly Electronically signed by Lukas Apodaca 09/23/2016 2:55 PM
--- NOTE | 2016-09-23 16:07 | Diag Imaging Result Doc PS360 ---
EXAM: HEAD W/O CONTRAST HISTORY: generalized weakness, h/o lung ca TECHNIQUE: Dose reduction protocol COMPARISON: 04/12/2016 FINDINGS: No parenchymal hemorrhage. No epidural or subdural hematoma. No subarachnoid hemorrhage. No mass identified on this noncontrasted exam. No hydrocephalus. No sinus opacification. IMPRESSION: No hemorrhage. Negative brain CT without contrast. Electronically signed by Lukas Apodaca 09/23/2016 4:05 PM
[2016-09-23] MEDS ORDERED: AMITIZA PO PRN (16:26)
[2016-09-23] MEDS ORDERED: NORCO-10 PO PRN (16:26)
[2016-09-23] MEDS ORDERED: DUONEB (A & A) INH PRN (16:26)
[2016-09-23] MEDS ORDERED: VENTOLIN HFA INH PRN (16:26)
[2016-09-23] MEDS: NS 1,000 ML IV SCH (16:51)
[2016-09-23] MEDS: HUMALOG SUBQ SCH ×2 (17:31→22:24)
[2016-09-23] MEDS: MYCOSTATIN SUSP PO SCH ×2 (17:41→22:22)
[2016-09-23] MEDS: VOLTAREN 1% GEL TOP SCH ×3 (17:41→22:24)
[2016-09-23] MEDS: DUONEB (A & A) INH SCH ×2 (19:10→22:39)
--- NOTE | 2016-09-23 19:44 | HISTORY AND PHYSICAL ---
CHIEF COMPLAINT: Weakness. HISTORY OF PRESENT ILLNESS: Ms. Laguerre is a 60-year-old female with a history of lung cancer, COPD on 24/7 O2, cirrhosis of the liver and others, who presents from home today with generalized weakness and dehydration. Ms. Avina was actually on vacation in [place]. 2 days ago she was driving down to the beach and began to feel fairly weak and overnight she started having more weakness and polyuria. The next morning she came back to [place] and has been growing increasingly weak. She reports that she is unable to walk or get up without significant help. Today she went to Dr. Foster's office and had blood work drawn, but felt that her could no longer her at home with her weakness, so she came to the ER. She denies any fever, chills, cough or congestion, no abdominal pain. No nausea vomiting. She does report lower extremity edema, she is chronically short of breath. In the ER, she had labs and diagnostics done. There was nothing really acute, she is pancytopenia, mildly hypokalemic and hyponatremia and hypoalbuminemic. Her vitals are stable, but on physical exam, she is quite dry. We are now going to admit her for further treatment and evaluation. PAST MEDICAL HISTORY: Non-small cell lung cancer, rheumatoid arthritis, diabetes mellitus, comes cirrhosis, presumably DRISCOLL, hypertension, acid reflux, COPD on home O2. Chronic pain, anxiety, hypertension. PAST SURGICAL HISTORY: Hysterectomy, tubal ligation, hemorrhoidectomy, left ankle surgery, Port-A- Cath placement. SOCIAL HISTORY: Patient quit smoking. She is and lives at home with her . She denies alcohol, tobacco or drug use. FAMILY HISTORY: Noncontributory. REVIEW OF SYSTEMS: A 14 point review of systems obtained and found to be negative with the exception of the HPI. ALLERGIES: To codeine adhesive tape morphine and methadone. HOME MEDICATIONS: Ventolin HFA 2 puffs inhaled q.4 hours as needed. Xanax 2 mg p.o. b.i.d., Voltaren gel 2 g topically 4 times a day, Colace 100 mg p.o. b.i.d., Lexapro 10 mg daily, folic acid 1 mg daily, Lasix 20 mg p.o. daily, Silas every 8 hours as needed for pain , Levemir Flexitouch 40 units subcutaneous b.i.d., Amitiza 24 mcg p.o. daily, methocarbamol 750 mg p.o. daily, methotrexate 2.5 mg p.o. daily, Remeron 30 mg p.o. at bedtime, nystatin 100 1000 units p.o. daily, Nystatin suspension 5 mL p.o. 4 times a day, Klor-Con 20 mEq p.o. b.i.d., prednisone 20 mg daily, Aldactone 25 mg p.o. a chest sedated, tizanidine 4 mg p.o. b.i.d., triamterene hydrochlorothiazide 1 daily. PHYSICAL EXAMINATION: VITAL SIGNS: Blood pressure is 120/97, heart rate 89, respiratory rate 16, O2 saturation 100% on 2 L. Temperature is 97.9 degrees. GENERAL: This is a chronically ill and disheveled-appearing 60-year-old female, lying in hospital bed, somewhat sedate, but opens eyes to verbal stimulus and is in no acute distress. NEUROLOGIC: The patient is a bit lethargic, but opens eyes to verbal stimulus. She follows commands with globalized weakness, no acute findings. HEENT: Head atraumatic and normocephalic. Her pupils are equal, round, and reactive to light. Oral mucosa is extremely dry and tacky. Dentition is poor. NECK: Supple. Trachea is midline. CHEST: Clear to auscultation bilaterally. CARDIOVASCULAR: Regular rate and rhythm, S1-S2 is noted. GI: Soft, nondistended, nontender. Bowel sounds hypoactive. EXTREMITIES: 2+ edema bilaterally with diminished pulses. DIAGNOSTIC DATA: Chest and abdomen x-ray shows no interval change in right mid lung density/mass. There is splenomegaly. WBC 4.73, hemoglobin 10.2, hematocrit 33.2, platelet count 91,000. Sodium 134, potassium 3.1. Chloride 95, CO2 26, anion gap 13, BUN 12, creatinine 0.6, glucose 177, calcium 8.1, magnesium 1.6. Total bilirubin 0.79, AST 20, ALT 14, alkaline phosphatase 56, albumin 2.9. UA negative for any acute process. ASSESSMENT AND PLAN: 1. Globalized weakness: We will check a head computed tomography to make sure there is no metastasis to the brain. Consult Physical Therapy and Social Work as the patient will likely need rehab or halfway. We will continue intravenous fluid hydration and get nutrition to see her as she is malnourished. 2. Pancytopenia: Iron studies been ordered for the morning and Dr. Evans was been consulted. 3. Intravascular volume depletion: Combination of intravascular volume loss on top of hypoproteinemia. We are going to start IV fluids. We'll hold all of her diuretics as she is on 3 different types of diuretics. She may end up needing albumin intravenously. 4. Chronic obstructive pulmonary disease: Not in exacerbation, continue oxygen and breathing treatments. 5. Hypokalemia. This has replaced in the ER. We will continue to monitor electrolytes and replace as necessary. 6. Hypovolemic hyponatremia: Continue intravenous fluids. 7. Diabetes mellitus: We will add pattern sugars and sliding scale insulin. 8. Lung cancer: Dr. Evans has been consulted. Overall, this appears to be stable. 9. Severe protein calorie malnutrition: We have consulted the Nutrition Service and will try and ensure that she can take p.o. diet as tolerated. 10. Deep vein thrombosis prophylaxis with Lovenox. Further recommendations to follow. Dictated by INDIGO Mulligan for Dian Taylor MD cc: INDIGO Mulligan MD [facility]
[2016-09-23] MEDS ORDERED: DILAUDID IV ONE (22:21)
[2016-09-23] MEDS: XANAX PO SCH (22:22)
[2016-09-23] MEDS: ZANAFLEX PO SCH (22:22)
[2016-09-23] MEDS: COLACE PO SCH (22:22)
[2016-09-23] MEDS: REMERON PO SCH (22:22)
[2016-09-23] MEDS: LEVEMIR SUBQ SCH (22:23)
[2016-09-24] MEDS: DUONEB (A & A) INH SCH ×6 (03:42→22:51)
[2016-09-24] MEDS: NS 1,000 ML IV SCH (04:51)
[2016-09-24] MEDS: NORCO-10 PO PRN ×3 (04:54→22:35)
[2016-09-24] MEDS ORDERED: INSULIN PEN NEEDLES ONE (06:45)
[2016-09-24] MEDS: HUMALOG SUBQ SCH ×4 (06:47→22:30)
[2016-09-24 06:50] LABS: HEMATOCRIT 29.4 % (37.0-47.0); HEMOGLOBIN 9.1 g/dL (12.0-16.0); MCH 28.2 PG (27-31); MPV 11.5 FL (7.4-10.4); RBC 3.23 XMIL (4.2-5.4)
[2016-09-24 06:57] LABS: AGAP 14; BUN 10 mg/dL (8-22); CALCIUM 8.2 mg/dL (8.8-10.2); CHLORIDE 101 mmol/L (98-107); COSMO 278; IRON SATURATION 17 %; POTASSIUM 3.4 mmol/L (3.5-5.1); SODIUM 139 mmol/L (136-145); TCO2 24 mmol/L (25-35); TIBC 158 ug/dL; TOTAL IRON 27 ug/dL (49-151); UNBOUND IRON 131 ug/dL (112-346)
[2016-09-24] MEDS ORDERED: KLOR-CON PO ONE (07:12)
[2016-09-24] MEDS ORDERED: 1/2 NS 1,000 ML IV SCH (07:12)
[2016-09-24 07:20] LABS: FERRITIN 1082 ng/mL (13-150)
[2016-09-24] MEDS: PREDNISONE PO SCH (08:52)
[2016-09-24] MEDS: ZANAFLEX PO SCH ×2 (08:52→22:35)
[2016-09-24] MEDS: METHOTREXATE PO SCH (08:52)
[2016-09-24] MEDS: COLACE PO SCH ×2 (08:52→22:37)
[2016-09-24] MEDS: ROBAXIN PO SCH (08:52)
[2016-09-24] MEDS: FOLIC ACID PO SCH (08:52)
[2016-09-24] MEDS: LEXAPRO PO SCH (08:52)
[2016-09-24] MEDS: XANAX PO SCH ×2 (08:53→22:35)
[2016-09-24] MEDS: VOLTAREN 1% GEL TOP SCH ×4 (08:53→22:36)
[2016-09-24] MEDS: MYCOSTATIN SUSP PO SCH ×4 (08:54→22:31)
[2016-09-24] MEDS: CLINIMIX E 4.25%-5% SOLUTION 1,000 ML IV SCH (11:40)
[2016-09-24] MEDS: LEVEMIR SUBQ SCH ×2 (11:48→22:37)
[2016-09-24] MEDS: LOVENOX SUBQ SCH (11:49)
--- NOTE | 2016-09-24 13:42 | CONSULTATION ---
DATE OF CONSULTATION: 09/24/2016 CHIEF COMPLAINT: Patient was admitted for dehydration. HISTORY OF PRESENT ILLNESS: Patient is a 60-year-old female, who is well known to me. She has a history of small cell carcinoma, and received chemotherapy with radiation last year. Earlier this year, she received brain radiation prophylactically. Recently, she was noted to have metastatic disease involving the liver. On 09/16/2016, she was started on her first dose of Opdivo. This is an immunotherapy. She went to [place] the next day. Apparently, there she started developing shakes and low-grade fever. She turned around and came back. She reports of having mild nausea, but this was minimal. She also reports minimal diarrhea, but that also was not particularly concerning. She denies worsening cough, shortness of breath, or chest pain. She denies sore throat or flu-like symptoms. She denies abdominal pain. She denies dysuria, hematuria, or frequency. Upon return to [place], she got in touch with Dr. Foster's office, who has seen her. She was at home and getting weaker, and hence decided to come to the hospital. In the hospital, she was noted to have generalized weakness. CT of the head was obtained, which was negative for any metastasis. She was noted to have dehydration, hyponatremia, and hypokalemia. She is on IV fluids at this time. PAST MEDICAL HISTORY: Small cell lung cancer, stage IV, rheumatoid arthritis, diabetes, history of cirrhosis/DRISCOLL, hypertension, GERD, COPD. PAST SURGICAL HISTORY: Hysterectomy, tubal ligation, hemorrhoidectomy, Port-A-Cath placement. FAMILY HISTORY: Noncontributory. SOCIAL HISTORY: Patient is an ex-smoker. She lives with her . She denies alcohol or substance abuse. ALLERGIES: Codeine, morphine, methadone, adhesive tape. CURRENT MEDICATIONS: [place], nebulizers, Xanax, Colace, Lexapro, folic acid, Levemir, Humalog, Amitiza, Robaxin, methotrexate, Remeron, nystatin, prednisone, Zanaflex, normal saline. REVIEW OF SYSTEMS: She reports generalized weakness and inability to move her hands and legs much. She had left shoulder surgery, and has had difficulty with mobility in the left shoulder. Currently, she denies any fevers or night sweats. Appetite is good. Weight is stable. All other review of systems are negative. PHYSICAL EXAMINATION: General: The patient is lying in bed. She does not appear in acute distress. Vital Signs: Temperature 98.3 degrees, pulse 109, blood pressure 136/68. Eyes: EOMI. PERRLA. Anicteric. Mucous membranes are very dry. Neck: Supple. No JVD, thyromegaly, or nodules. Cardiac: Regular rate and rhythm. Normal S1, S2. Chest: Clear to auscultation. No wheezing. Abdomen: Protuberant, soft, nontender, without hepatosplenomegaly or masses. Extremities: Reveals mild edema in both legs. The right leg is slightly more swollen than the left leg. Neurological: Awake, alert, and oriented x3. Moving all 4 extremities, but appears to have generalized weakness. LABORATORY DATA: White count 2.39, hemoglobin 9.1, hematocrit 29, MCV 91, platelets 88,000, BUN 10, creatinine 0.5, ferritin 1082, percent saturation 17, iron 27, bilirubin 0.7, AST 20, ALT 14, alkaline phosphatase 56. B12 of 431. Folate 23. CT of the head negative. IMPRESSION: 1. Stage IV small cell lung cancer: She was started Opdivo recently. This is an immunotherapy. I do not expect nausea or vomiting and typical chemotherapy side effects with this immunotherapy. I think her current condition is most likely unrelated to her recent therapy. 2. History of cirrhosis and splenomegaly and pancytopenia: The patient has a history of this. Simply continue to monitor counts. Iron profile, B12, folate levels are adequate. 3. Hypokalemia and hyponatremia and dehydration: Continue to replete with fluids. 4. Fluids/Electrolytes/Nutrition: I have encouraged her to get adequate calorie and protein intake. Get her out of bed. Get Physical Therapy involved as well. She reports of generalized pain, and this may be from her rheumatological disorder. Continue pain management. 5. History of rheumatoid arthritis. She is on methotrexate. She is also on low dose prednisone at this time. Steroids to manage her pain and get her ambulating as soon as possible. 6. Generalized weakness: CT of the head is negative. She has minimal metastatic disease in the liver. I do not think that this generalized weakness is related to oncology issues or her recent therapy. I will discuss further with primary team. cc: Josesito Evans MD
--- NOTE | 2016-09-24 14:09 | PROGRESS NOTE ---
DATE: 09/24/2016 SUBJECTIVE: This patient is about the same, she is still having generalized weakness. She is eating but just some bites, she is confused. She is alert to person and time but she is not oriented in place. She states that she is at home. Also she has some kind of somnolence. Physical therapy is on board. OBJECTIVE: Vital Signs: Temperature 98.3 degrees, pulse 109, respiratory rate 20, blood pressure 136/68, oxygen saturation 98 on 2 L of nasal cannula. HEENT: Head normocephalic. No trauma. PERRLA. Neck: Supple. No JVD. No masses. Central trachea. Chest: Clear to auscultation bilaterally. Abdomen: Soft, nontender, nondistended. Extremities: 2+ lower extremity edema. Cardiovascular: RRR. Neurological: The patient is sleepy but arousable. She is following commands. She is oriented x2. She is not oriented in place. Apparently she has been like this for the past 24 hours. LABORATORY: WBC 2.3, hemoglobin 9.1, hematocrit 29.4, platelets 88,000. Sodium 139, potassium 3.4, chloride 101, bicarbonate 24, BUN 10, creatinine 0.5, glucose 125, calcium 8.2. ASSESSMENT AND PLAN: 1. Altered mental status, I do not have any family members at the bedside to be able to compare her actual mental status with her previous one. It looks like she has some kind of encephalopathy. 2. Generalized weakness. Physical therapy is on board. I will continue with IV fluids but I will add Clinimix. Dietitian has been consulted. 3. Pancytopenia. Continue with the same management. Dr. Evans has been consulted. 4. Dehydration. Continue with IV fluids. We will hold her diuretics and hopefully tomorrow we will restart them if that is okay. She made need albumin IV. 5. Chronic obstructive pulmonary disease not in exacerbation. Continue with oxygen and breathing treatment. 6. Hypokalemia. I will replace the potassium. 7. Hypovolemic hyponatremia. Continue with IV fluids. 8. Type 2 diabetes. Continue with the sliding scale insulin and pattern of blood sugar. 9. Lung cancer as per Oncology department. 10. Severe protein calorie malnutrition. We have consulted nutrition service and we will try to ensure that she can take p.o. diet as tolerated, I put this patient today on Clinimix. 11. Deep vein thrombosis prophylaxis with Lovenox. cc: Ranjan Mccullough MD
[2016-09-24] MEDS: 1/2 NS 1,000 ML IV SCH (18:51)
[2016-09-24] MEDS: DILAUDID IV PRN ×2 (19:11→23:29)
[2016-09-24] MEDS: REMERON PO SCH (22:37)
[2016-09-25] MEDS: DILAUDID IV PRN ×3 (03:03→15:28)
[2016-09-25] MEDS: DUONEB (A & A) INH SCH ×6 (03:44→23:20)
[2016-09-25] MEDS: NORCO-10 PO PRN ×3 (04:38→14:44)
[2016-09-25] MEDS: CLINIMIX E 4.25%-5% SOLUTION 1,000 ML IV SCH (05:20)
[2016-09-25 07:28] LABS: BASO% 0.5 % (0.0-0.8); EOS# 0.02 X1000 (0.0-0.7); HEMATOCRIT 31.9 % (37.0-47.0); HEMOGLOBIN 9.8 g/dL (12.0-16.0); LYMPH# 0.29 X1000 (1.2-3.4); LYMPH% 13.9 % (20.5-51.1); MANUAL DIFF NEEDED? YES; MCHC 30.7 g/dL (33-37); MCV 91.1 FL (81-99); MONO# 0.22 X1000 (0.11-0.59); MONO% 10.5 % (1.7-9.3); MPV 11.3 FL (7.4-10.4); NEUT% 74.1 % (42.2-75.2); PLT 87 X1000 (130-400)
[2016-09-25 07:51] LABS: AGAP 13; BUN 12 mg/dL (8-22); CALCIUM 8.6 mg/dL (8.8-10.2); CHLORIDE 102 mmol/L (98-107); COSMO 280; POTASSIUM 3.8 mmol/L (3.5-5.1); SODIUM 139 mmol/L (136-145); TCO2 24 mmol/L (25-35)
[2016-09-25] MEDS: ZANAFLEX PO SCH ×2 (08:42→22:48)
[2016-09-25] MEDS: ROBAXIN PO SCH (08:42)
[2016-09-25] MEDS: XANAX PO SCH ×2 (08:42→22:47)
[2016-09-25] MEDS: COLACE PO SCH ×2 (08:43→22:48)
[2016-09-25] MEDS: VOLTAREN 1% GEL TOP SCH ×4 (08:43→22:45)
[2016-09-25] MEDS: PREDNISONE PO SCH (08:43)
[2016-09-25] MEDS: FOLIC ACID PO SCH (08:43)
[2016-09-25] MEDS: LOVENOX SUBQ SCH (08:43)
[2016-09-25] MEDS: METHOTREXATE PO SCH (08:43)
[2016-09-25] MEDS: LEXAPRO PO SCH (08:43)
[2016-09-25] MEDS: MYCOSTATIN SUSP PO SCH ×4 (08:43→22:45)
[2016-09-25] MEDS: LEVEMIR SUBQ SCH ×2 (08:44→22:46)
--- NOTE | 2016-09-25 10:00 | PROGRESS NOTE ---
DATE: 09/25/2106 SUBJECTIVE: The patient is alert and oriented x3. She states that she wants to go home. She continues to have generalized weakness. Physical therapy is on board. The patient denies any nausea, vomiting, worsening diarrhea, any worsening dyspnea. OBJECTIVE: Vital Signs: Temperature 97.7 degrees, heart rate 94, respirations 18, blood pressure 136/66, pulse ox 99%. HEENT: Head is normocephalic, atraumatic. Mucous membranes appear quite dry. Trachea is midline. Cardiovascular: S1, S2 audible to auscultation with no heaves, lifts, thrills. Pulmonary: Breath sounds clear to auscultation with normal respiratory effort. Extremities: There is 2+ bilateral lower extremity edema. Neurologic: Alert and oriented x3. Psychiatric: Appropriate to the situation. GI: Abdomen is soft. Positive bowel sounds in all 4 quadrants. LABORATORY DATA: WBC is 2.09, hemoglobin is 9.8, hematocrit 31.9, platelet count is 87,000. Sodium is 139, potassium 3.8, BUN 12, creatinine 0.5. ASSESSMENT AND PLAN: 1. Stage IV small cell lung cancer. She recently started immunotherapy with Opdivo. Her current condition is most likely unrelated to this therapy. 2. History of cirrhosis, splenomegaly, and pancytopenia. Patient's counts are stable. Continue to monitor and transfuse as needed. 3. Generalized weakness. CT of the head was negative. Will continue physical therapy. Get patient out of bed b.i.d. 4. Clinical dehydration. Continue with IV fluids and appropriate nutrition. 5. History of rheumatoid arthritis. On methotrexate and prednisone. 6. Deep vein thrombosis prophylaxis with Lovenox. We will continue to follow the patient peripherally. Dictated by INDIGO Cabrera for Josesito Evans MD cc: INDIGO Cabrera MD [facility]
[2016-09-25 10:24] LABS: BANDS 2 % (0-1); LYMPHS 10 % (21-51); MONO 6 % (1-9)
[2016-09-25] MEDS: HUMALOG SUBQ SCH ×4 (11:29→22:46)
--- NOTE | 2016-09-25 13:01 | PROGRESS NOTE ---
DATE: 09/25/2016 SUBJECTIVE: Ms. Avina is a 60-year-old who was admitted on 09/23/2016. She presented with weakness, history of lung cancer, chronic obstructive pulmonary disease, diagnosed in 2001, and cirrhosis of the liver. Presented from home with generalized weakness and dehydration. She was on vacation in [place] 2 days ago, was driving down the beach, began to feel very weak. Overnight she started having more weakness and polyuria. The next morning she came back to [place] with increased weakness and went to Dr. Foster's office and was admitted here. She had pancytopenia, hyponatremia, hypoalbuminemia. Today she states that she does not feel good. Still very weak, very puny. OBJECTIVE: Temperature is 97.8 degrees, pulse 95, respirations 20, blood pressure 129/61.HEENT: Pupils are equal and round. Lungs: Lungs are clear. Cardiovascular: Regular rhythm and rate without murmur or S3. Abdomen: Soft. Skin: Warm and dry. Blood sugars 183, 147, 147. ASSESSMENT: 1. Dr. Josesito Evans consulted. She had stage IV small-cell lung cancer. She was started on OptiVol recently. This is immunotherapy. Unexpected to get nausea and vomiting side effects. [place] this recent condition most likely related to recent therapy. Because nausea and vomiting are not typical on side effects of this, according Dr. Evans. 2. She has had cirrhosis, splenomegaly, and pancytopenia. Continue to monitor counts. Get B12 and folate levels. 3. Hypokalemia, hyponatremia, and dehydration, so continue fluids and electrolytes. Encourage p.o. intake. 4. Protein calorie malnutrition. Improve p.o. intake. 5. History rheumatoid arthritis. 6. General weakness and deconditioning. I do not see anything to change at this point looking at her orders. Blood sugars appear controlled. Reviewed her orders. cc: Amanuel Barrett MD
[2016-09-25] MEDS: 1/2 NS 1,000 ML IV SCH (18:10)
[2016-09-25] MEDS: REMERON PO SCH (22:47)
[2016-09-26] MEDS: CLINIMIX E 4.25%-5% SOLUTION 1,000 ML IV SCH (02:12)
[2016-09-26] MEDS: DUONEB (A & A) INH SCH ×6 (03:35→23:20)
[2016-09-26 06:20] LABS: HEMATOCRIT 30.8 % (37.0-47.0); HEMOGLOBIN 9.5 g/dL (12.0-16.0); MCH 28.1 PG (27-31); MCHC 30.8 g/dL (33-37); MCV 91.1 FL (81-99); MPV 10.8 FL (7.4-10.4); RBC 3.38 XMIL (4.2-5.4)
[2016-09-26 06:34] LABS: AGAP 13; BUN 12 mg/dL (8-22); CALCIUM 8.2 mg/dL (8.8-10.2); CHLORIDE 101 mmol/L (98-107); COSMO 278; POTASSIUM 3.6 mmol/L (3.5-5.1); SODIUM 137 mmol/L (136-145); TCO2 23 mmol/L (25-35)
[2016-09-26] MEDS: HUMALOG SUBQ SCH ×4 (06:35→21:58)
[2016-09-26] MEDS: DILAUDID IV PRN ×3 (08:19→21:40)
[2016-09-26] MEDS: ZANAFLEX PO SCH ×2 (10:10→21:40)
[2016-09-26] MEDS: LOVENOX SUBQ SCH (10:10)
[2016-09-26] MEDS: ROBAXIN PO SCH (10:10)
[2016-09-26] MEDS: METHOTREXATE PO SCH (10:11)
[2016-09-26] MEDS: PREDNISONE PO SCH (10:11)
[2016-09-26] MEDS: LEXAPRO PO SCH (10:11)
[2016-09-26] MEDS: COLACE PO SCH ×2 (10:11→21:40)
[2016-09-26] MEDS: XANAX PO SCH ×2 (10:11→21:39)
[2016-09-26] MEDS: LEVEMIR SUBQ SCH ×2 (10:12→21:56)
[2016-09-26] MEDS: MYCOSTATIN SUSP PO SCH ×4 (10:13→21:44)
[2016-09-26] MEDS: FOLIC ACID PO SCH (10:13)
[2016-09-26] MEDS: VOLTAREN 1% GEL TOP SCH ×5 (10:14→23:00)
[2016-09-26] MEDS: 1/2 NS 1,000 ML IV SCH (19:43)
[2016-09-26] MEDS: REMERON PO SCH (21:40)
[2016-09-27] MEDS: CLINIMIX E 4.25%-5% SOLUTION 1,000 ML IV SCH ×2 (00:45→18:56)
[2016-09-27] MEDS: DUONEB (A & A) INH SCH ×7 (03:30→23:39)
[2016-09-27] MEDS: DILAUDID IV PRN ×2 (03:36→09:33)
--- NOTE | 2016-09-27 03:55 | PROGRESS NOTE ---
DATE: 09/26/2016 SUBJECTIVE: Ms. Avina is feeling a little better than she did yesterday. She still has confusion and she is still pretty lethargic. Her son, I got to talk to him. She sometimes asks for pain medicine. She is not really hurting. She would like to get up and try and get up out of bed. He would like to try that so we will continue physical therapy. PHYSICAL EXAMINATION: Vital Signs: Her temperature is running low-grade at 100.6, 100.4. Pulse 100, respirations 15, blood pressure 106/58. Respiratory: Lungs are clear in all lung mcclain. Cardiovascular Examination: Regular rhythm and rate without murmur or S3. Abdomen: Soft. Skin: Is warm and dry. Is and Os: Urine output 1500 mL. LAB: White count 2440, hematocrit 30, platelet count 103,000. Sodium 137, potassium 3.6, chloride 101, bicarb 23, BUN 12, creatinine 0.5, blood sugar 110 and 176. ASSESSMENT AND PLAN: 1. Dr. Evans involved, stage IV lung cancer. Started on Opdivo recently. This is immunotherapy. Suspect that most of her symptoms are from progressive disease. 2. Cirrhosis, splenomegaly, pancytopenia. Continue to watch counts. Try and optimize what we can. 3. Hypokalemia, hyponatremia, dehydration. Continue intravenous fluids. 4. Protein calorie malnutrition. Encourage oral intake. 5. History of rheumatoid arthritis. 6. General weakness, deconditioning, metabolic encephalopathy. I would like to continue to try and get her out of bed. Pursue physical therapy. I did have discussion with them that we may need to switch to just comfort measures. I think he is surprised that she was so functional in the short time these symptoms presented. 7. Note, she has diabetes. We are watching her sugars. cc: Amanuel Barrett MD
[2016-09-27] MEDS: HUMALOG SUBQ SCH ×4 (06:15→21:47)
[2016-09-27] MEDS: XANAX PO SCH ×2 (09:30→22:08)
[2016-09-27] MEDS: VOLTAREN 1% GEL TOP SCH ×4 (09:30→22:09)
[2016-09-27] MEDS: ZANAFLEX PO SCH ×2 (09:31→22:08)
[2016-09-27] MEDS: LEVEMIR SUBQ SCH ×2 (09:31→21:47)
[2016-09-27] MEDS: METHOTREXATE PO SCH (09:31)
[2016-09-27] MEDS: LEXAPRO PO SCH (09:32)
[2016-09-27] MEDS: PREDNISONE PO SCH (09:32)
[2016-09-27] MEDS: ROBAXIN PO SCH (09:32)
[2016-09-27] MEDS: LOVENOX SUBQ SCH (09:33)
[2016-09-27] MEDS: FOLIC ACID PO SCH (09:33)
[2016-09-27] MEDS ORDERED: VANCOMYCIN IV PER PHARMACY MISC SCH (09:45)
[2016-09-27] MEDS: COLACE PO SCH ×2 (11:38→22:08)
[2016-09-27] MEDS: MYCOSTATIN SUSP PO SCH ×4 (11:38→22:08)
[2016-09-27] MEDS: ROCEPHIN 1 GM/NS 1 GM/50 ML IVPB IV SCH (11:44)
[2016-09-27] MEDS: VANCOMYCIN 2 GM in NS 500 ML IV SCH (14:00)
--- NOTE | 2016-09-27 15:53 | PROGRESS NOTE ---
DATE: 09/27/2016 SUBJECTIVE: Ms. Avina is uncomfortable. The left side of her chest is sore and tender. She has a peripheral IV in. We were going to start her on some antibiotics. Will check some blood cultures. I guess I am going to have to remove this port. OBJECTIVE: Vital signs: Today temp 98.5 degrees, pulse 100, respirations 17, blood pressure 140/62. Lungs: Clear in all lung mcclain. Cardiovascular: Regular rhythm and rate without murmur or S3. Abdomen: Soft. Skin: Warm and dry. LABORATORY: Blood sugar of 244, 110. ASSESSMENT AND PLAN: Stage IV lung cancer. Recently started Opdivo but presented with weakness and profound lethargy. She has cirrhosis, splenomegaly, and pancytopenia. She had some hypokalemia, hyponatremia which is improved and poor p.o. intake. She also has a history of rheumatoid arthritis. It looks like this IV access is going to have to come out. We will start her on antibiotics. Get Dr. Bassett involved. We will get general surgery involved as well. Orders reviewed. I do not see any other changes at this point. cc: Amanuel Barrett MD
[2016-09-27] MEDS: NORCO-5 PO PRN ×2 (17:34→22:50)
[2016-09-27] MEDS ORDERED: INSULIN PEN NEEDLES ONE (17:38)
[2016-09-27] MEDS: 1/2 NS 1,000 ML IV SCH (18:56)
[2016-09-27] MEDS: REMERON PO SCH (22:08)
--- NOTE | 2016-09-27 23:17 | CONSULTATION ---
DATE OF CONSULTATION: 09/27/2016 CONCLUSION: I have been asked by Dr. Barrett to see Ms. Avina regarding her Port -A-Cath. It is in the right part of the chest. It is slightly erythematous, although it is not fluctuant and when I examined it was not tender. I think it is possible that it could be infected; however, I think it is also possible that it is not infected. RECOMMENDATIONS: I agree with drawing blood cultures and starting the patient on antibiotics as Dr. Barrett has done. DISCUSSION: The patient is unable provide a history. She is a somewhat delirious. She was originally admitted to the hospital because she became very weak to the point that she could not get up to walk without significant help. She has not been having fever or chills. She has not had any nausea or vomiting. She is chronically short of breath. Her laboratory studies show a CBC with a white count of 2440, hemoglobin 9.5, and platelet count 103,000. Creatinine is 0.5. GFR is greater than 60. Liver function studies are normal. PAST MEDICAL HISTORY: Positive for [id number] lung cancer, rheumatoid arthritis,diabetes mellitus, cirrhosis of the liver, hypertension, gastroesophageal reflux disease and COPD for which the patient is on home oxygen. Patient also has chronic pain, anxiety and hypertension. PAST SURGICAL HISTORY: Positive for hysterectomy, tubal ligation, hemorrhoidectomy, left ankle surgery and placement of a Port-A-Cath. FAMILY HISTORY: Said to be noncontributory. SOCIAL HISTORY: The patient previously was a smoker, but has stopped. She is and lives at home with her . She denied drinking alcoholic beverages, smoking cigarettes or abusing drugs. REVIEW OF SYSTEMS: Unable to be obtained. ALLERGIES: The patient has allergies to codeine, adhesive tape, morphine and methadone. MEDICATIONS: Triamterene, hydrochlorothiazide, tizanidine, spironolactone, prednisone, potassium, nystatin, Remeron, methotrexate, methocarbamol, Amitiza, insulin, hydrocodone, furosemide, folic acid, Lexapro, Colace, Voltaren, alprazolam and Ventolin inhaler. PHYSICAL EXAMINATION: Vital Signs: Temperature is 98.5 degrees, pulse 100, respirations 17, blood pressure 140/62. Generally: The patient seems to be somewhat delirious. She kind of thrashes around in the bed. She does not answer questions. She does not follow request to move her extremities. Head, eyes, ears, nose and throat: I was unable to see if her hearing was intact. I did not see her track with her eyes. Her mouth had a dry tongue and teeth. Neck: No meningismus. Lungs: Clear to auscultation. Cardiovascular: Heart rate is regular. Peripheral pulses are palpable. Abdomen: Soft and nontender. Chest: The patient's Port-A-Cath on the right side, the skin overlying it is slightly erythematous. The Port-A-Cath is not fluctuant and it did not appear to be tender. Thank you for the consult. cc: Mahamed Bassett MD MTDD
[2016-09-28] MEDS: 1/2 NS 1,000 ML IV SCH (01:28)
[2016-09-28] MEDS: DUONEB (A & A) INH SCH ×6 (03:52→22:59)
[2016-09-28] MEDS: HUMALOG SUBQ SCH ×4 (06:29→21:00)
[2016-09-28] MEDS: XANAX PO SCH ×2 (09:07→21:00)
[2016-09-28] MEDS: PREDNISONE PO SCH (09:07)
[2016-09-28] MEDS: COLACE PO SCH ×2 (09:08→21:00)
[2016-09-28] MEDS: LEXAPRO PO SCH (09:08)
[2016-09-28] MEDS: ZANAFLEX PO SCH ×2 (09:08→21:00)
[2016-09-28] MEDS: ROBAXIN PO SCH (09:08)
[2016-09-28] MEDS: NORCO-5 PO PRN ×3 (09:08→21:00)
[2016-09-28] MEDS: FOLIC ACID PO SCH (09:09)
[2016-09-28] MEDS: METHOTREXATE PO SCH (09:09)
[2016-09-28] MEDS: LOVENOX SUBQ SCH (09:25)
[2016-09-28] MEDS: LEVEMIR SUBQ SCH ×2 (09:25→21:00)
[2016-09-28] MEDS: MYCOSTATIN SUSP PO SCH ×4 (09:26→22:51)
[2016-09-28] MEDS: CLINIMIX E 4.25%-5% SOLUTION 1,000 ML IV SCH ×2 (09:26→15:01)
[2016-09-28] MEDS: VOLTAREN 1% GEL TOP SCH ×3 (09:44→17:15)
[2016-09-28] MEDS: ROCEPHIN 1 GM/NS 1 GM/50 ML IVPB IV SCH (09:44)
[2016-09-28] MEDS: VANCOMYCIN 2 GM in NS 500 ML IV SCH (14:24)
[2016-09-28] MEDS: CHLORASEPTIC SPRAY MT PRN (14:44)
[2016-09-28] MEDS: REMERON PO SCH (21:00)
--- NOTE | 2016-09-28 22:07 | PROGRESS NOTE ---
DATE: 09/28/2016 SUBJECTIVE: She is doing better. She has been able to ambulate in the halls. She is eating a little bit. She asked for some [employer] chicken as they brought her. The whole family was there. They feel like they would like me to cut down on her medication. She seems to be much more functional. I do not know that we need to pursue hospice with the improvement that we have seen. The trouble will be she is requesting this pain medicine pretty often, so I think we will watch her another 48 hours and see if we can adjust and get her on schedule. She does not like missing her pain medicine. OBJECTIVE: Vital signs: Temperature 98.5 degrees, pulse 86, respirations 18, blood pressure 112/74. CVP less than 6 cm. Lungs: Clear in all lung mcclain. Cardiovascular: Regular rhythm and rate without murmur or S3. LABORATORY: Urine output 1200 mL. Blood sugars look well controlled, the low 100s. Reviewed chemistry and CBC from . ASSESSMENT AND PLAN: 1. She has a Port-A-Cath on the right side. It does not appear to be infected and no longer has any swelling. I did discontinue her IV fluids. I discontinued her antibiotics. I do not see any evidence of bacterial infection. Her blood cultures are still pending at this time, but she has not had any fever, no elevated white count. 2. She has stage IV lung cancer, predominantly metastasis to her liver. She has had prophylactic radiation, cranial radiation and appears to be doing better with cutting down on her opioids and muscle relaxers. So I am giving her at the present time 5 mg of Norton and I think it is q.6 hours p.r.n. She has diclofenac gel. She is using Xanax and we cut down to 1 mg p.o. b.i.d., she was on 2, and she is on Amitiza 25 mg p.o. b.i.d. I will continue that for now. The Robaxin 750 mg daily, methotrexate 2.5 mg daily, Remeron 30 mg at bedtime, and Zanaflex 4 mg b.i.d. cc: Amanuel Barrett MD
[2016-09-29] MEDS: VOLTAREN 1% GEL TOP SCH ×5 (01:00→22:03)
[2016-09-29] MEDS: NORCO-5 PO PRN ×3 (02:45→22:02)
[2016-09-29] MEDS: DUONEB (A & A) INH SCH ×6 (03:57→23:05)
--- NOTE | 2016-09-29 04:15 | PROGRESS NOTE ---
DATE: 09/28/2016 PRESENT ILLNESS: It was felt earlier that the patient may have an infected Port -A-Cath. She was lethargic and there was some slight erythema at the Port-A-Cath site. It turns out that the patient was on quite a bit of narcotic medication, which probably accounts for her drowsiness and today, examination of the Port-A-Cath site shows that it is not swollen, it is not tender, and it is only minimally erythematous. It is more like a pink color. MEDICATIONS: The patient's antibiotics were stopped. She has remained afebrile off them. PHYSICAL EXAMINATION: Temperature is 98.5 degrees, pulse 86, respirations 18, blood pressure 112/74.General: This is a somewhat ill-appearing, middle-aged female, who is in no acute distress. Lungs: Clear to auscultation. Cardiovascular: Regular heart rate. Chest: The patient's Port-A-Cath site is the only a little bit pinkish in color. It is not swollen and it is not tender. Abdomen: Soft and not tender. Neurologic: Patient is awake. She is talking quite a bit, and especially talking about prior incidents that happened to her. Extremities: Legs are edematous but not erythematous. LAB AND X-RAY: There is no new lab or x-ray. ASSESSMENT AND PLAN: I do not think the patient's Port-A-Cath is infected. I do not think at this time she needs any further antibiotics. Blood cultures have been drawn but the results are pending. COMORBIDITIES: She has a [id number] lung cancer. She also is a diabetic. She has cirrhosis of the liver and rheumatoid arthritis. She also has gastroesophageal reflux disease and COPD. She also takes pain medicine on a chronic basis. I am available to see the patient on a p.r.n. basis. I am signing off for now. cc: Mahamed Bassett MD MTDD
[2016-09-29] MEDS: HUMALOG SUBQ SCH ×4 (06:23→22:03)
[2016-09-29] MEDS: METHOTREXATE PO SCH (08:56)
[2016-09-29] MEDS: LEVEMIR SUBQ SCH ×3 (08:56→22:08)
[2016-09-29] MEDS: XANAX PO SCH ×2 (08:56→22:02)
[2016-09-29] MEDS: COLACE PO SCH ×2 (08:56→22:03)
[2016-09-29] MEDS: PREDNISONE PO SCH (08:56)
[2016-09-29] MEDS: LOVENOX SUBQ SCH (08:56)
[2016-09-29] MEDS: FOLIC ACID PO SCH (08:56)
[2016-09-29] MEDS: LEXAPRO PO SCH (08:56)
[2016-09-29] MEDS: ZANAFLEX PO SCH ×2 (08:56→22:03)
[2016-09-29] MEDS: MYCOSTATIN SUSP PO SCH ×4 (08:57→22:02)
[2016-09-29] MEDS: CHLORASEPTIC SPRAY MT PRN (08:58)
[2016-09-29] MEDS: MARINOL PO SCH (14:05)
--- NOTE | 2016-09-29 15:53 | PROGRESS NOTE ---
DATE: 09/29/2016 SUBJECTIVE: She is sitting up eating, requesting to go home. Wants to go home in the morning. OBJECTIVE: Vital signs: Temperature 99.6 degrees, pulse 82, respirations 20, blood pressure 136/59. Eyes: Pupils are equal, round. Lungs: Clear in all lung mcclain. Cardiovascular: Regular rhythm and rate without murmur or S3. Abdomen: Soft. Skin: Warm and dry. LABORATORY: Blood sugars 152, 77, 143. Unremarkable blood sugars 168, 152, 87, 77. ASSESSMENT AND PLAN: It was felt earlier she might have an infected Port-A-Cath, and Port-A-Cath looks good. She is just very lethargic,. We feel like this is from medication. I do not see any evidence of infection. She has a non-small cell lung cancer, stage IV, and she has done well with backing down on her sedation. She is walking and her appetite has improved. So I think we can probably try and go home in the morning. They would like to try her on appetite stimulant Marinol, so I will see if I can start that. Get plans for her to go home in the morning this. cc: Amanuel Barrett MD
--- NOTE | 2016-09-29 21:18 | Extremity Venous Study ---
PROCEDURE NAME: Venous U/S Bilateral Legs - 09/24/2016 BILATERAL LOWER EXTREMITY VENOUS DUPLEX STUDY: COMPARISON: 03/22/2016. REFERRING PHYSICIAN: Josesito Evans MD READING PHYSICIAN: Bg Salas MD BIT TAPPER: [place]. INDICATION: Leg swelling, shortness of breath with a history of cancer. FINDINGS: The deep and superficial veins of both lower extremities were imaged throughout their course. They are compressible, patent and without thrombus. There is forward flow throughout. INTERPRETATION: No evidence of deep or superficial venous thrombosis in either lower extremity. This is unchanged from the prior study on 03/22/2016. cc: MD Josesito Dougherty MD
[2016-09-29] MEDS: REMERON PO SCH (22:02)
[2016-09-30] MEDS: DUONEB (A & A) INH SCH ×3 (03:26→11:12)
[2016-09-30] MEDS: NORCO-5 PO PRN ×3 (04:11→15:38)
[2016-09-30] MEDS: HUMALOG SUBQ SCH ×2 (06:34→10:30)
[2016-09-30 07:52] VITALS: BP 125/62
[2016-09-30] MEDS: XANAX PO SCH (08:12)
[2016-09-30] MEDS: PREDNISONE PO SCH (08:12)
[2016-09-30] MEDS: METHOTREXATE PO SCH (08:12)
[2016-09-30] MEDS: COLACE PO SCH (08:12)
[2016-09-30] MEDS: LEXAPRO PO SCH (08:12)
[2016-09-30] MEDS: FOLIC ACID PO SCH (08:12)
[2016-09-30] MEDS: ZANAFLEX PO SCH (08:12)
[2016-09-30] MEDS: MARINOL PO SCH (08:12)
[2016-09-30] MEDS: LEVEMIR SUBQ SCH (08:13)
[2016-09-30] MEDS: LOVENOX SUBQ SCH (08:13)
[2016-09-30] MEDS: MYCOSTATIN SUSP PO SCH ×2 (08:14→15:05)
[2016-09-30] MEDS: VOLTAREN 1% GEL TOP SCH ×2 (08:14→15:06)
--- NOTE | 2016-09-30 14:30 | DISCHARGE SUMMARY ---
ADMISSION DATE: 09/23/2016 DISCHARGE DATE: 09/30/2016 CHIEF COMPLAINT: She presented with weakness. HISTORY OF PRESENT ILLNESS AND HOSPITAL COURSE: This is a 60-year-old with a history of lung cancer stage IV, COPD, and cirrhosis of the liver, who presented from home on 09/23/2016 with generalized weakness and dehydration. Ms. Avina was actually on vacation in [place] a couple of days before being admitted. Was driving down to the beach, began to feel weak, and overnight she started having more weakness and polyuria. The following morning, came back to [place] and had been growing increasingly weak. Reports that she is unable to walk or to get up without significant help. She went to see Dr. Foster and at his office had blood work drawn. She could no longer stay at home because of her weakness and came to the emergency room. She denied fever, chills, edema, cough, or abdominal pain. No nausea or vomiting. Lower extremity edema was a little worse. Chronically short of breath. In the ER, she had labs and diagnostics done and there was nothing really acute. She had some mild pancytopenia, mild hypokalemia, hyponatremia, and hypoalbuminemia. Gave her some fluids, felt she was a little bit dry, and she showed improvement, but she was still very lethargic. Cut back on her pain medicines and she improved remarkably. She was able to get up, start eating, and walking around. Prior to that, concerned that she would have to go home with hospice, but decreasing her pain medicine, muscle relaxer, and benzodiazepines seemed to help very much. At one point, we found her purse close to her bed and there was some [place] in the purse, and suspect she was taking some medicines, as well, on her own. I think polypharmacy may have been the main factor. At any rate, she was ready to go home on 09/30/2016. DISCHARGE MEDICATIONS: She will take the DuoNeb as needed. I cut her down on the Xanax to 1 mg p.o. b.i.d., Colace 100 mg b.i.d., Marinol 2.5 mg a day, Lexapro 10 mg a day, folic acid 1 mg daily, and I will give her [place] 10. She can have 1 q.6 hours p.r.n. pain. She is on Levemir 40 units subcutaneously b.i.d., Amitiza 24 mcg b.i.d. p.r.n., methotrexate 2.5 mg a day for her rheumatoid arthritis, Remeron 30 mg at bedtime, prednisone 20 mg a day, and I started her on Marinol 2.5 mg a day. FOLLOWUP: To follow up with her primary care and Oncology. DISCHARGE INSTRUCTIONS: Encouraged her to continue exercise and encouraged p.o. intake. cc: Amanuel Barrett MD
--- NOTE | 2016-10-06 06:44 | PROVIDER DOCUMENTATION ---
This chart was entered by Meeta Connor Scribe, acting as scribe for Perez Duval MD. HPI-General Adult - General Stated Complaint: generalized pain, hx lung CA Time Seen by Provider: 09/23/16 10:40 Source: patient Allergies/Adverse Reactions: Patient Allergies Allergy/AdvReac Type Severity Reaction Status Date / Time codeine Allergy RASH Verified 09/23/16 14:15 adhesive tape AdvReac Severe RASH Verified 09/23/16 14:15 morphine AdvReac Severe NAUSEA AND Verified 09/23/16 14:15 VOMITING methadone AdvReac NAUSEA/VOMI Verified 09/23/16 14:15 TING Home Medications: Home Medication List Medication Instructions Recorded Confirmed Last Taken Type Methocarbamol 750 mg PO DAILY 10/26/15 09/23/16 09/23/16 History Prednisone 20 mg PO DAILY 10/26/15 09/23/16 09/23/16 History Triamterene/Hydrochlorothiazid 1 each PO DAILY 10/26/15 09/23/16 09/23/16 History [Triamterene-Hctz 37.5-25 mg Cp] Insulin Detemir [Levemir Flextouch] 40 unit SQ BID #0 11/15/15 09/23/16 Rx Methotrexate 2.5 mg PO DAILY 03/08/16 09/23/16 09/23/16 History Folic Acid 1 mg PO DAILY #0 tablet 03/09/16 09/23/16 09/23/16 Rx Furosemide [Lasix] 20 mg PO DAILY #0 tablet 03/09/16 09/23/16 09/23/16 Rx Potassium Chloride E.r. [Klor-Con] 20 meq PO BID #0 tablet 03/09/16 09/23/16 Rx Alprazolam 2 mg PO BID 04/13/16 09/23/16 09/23/16 History Docusate Sodium [Colace] 100 mg PO BID 04/13/16 09/23/16 09/23/16 History Escitalopram [Lexapro] 10 mg PO DAILY 04/13/16 09/23/16 09/23/16 History Hydrocodone/Acetaminophen [Tatum 1 each PO Q8H PRN PRN #10 tablet 04/15/1609/2309/23/16 Rx 10-325 Tablet] Diclofenac 1% Gel [Voltaren 1% Gel] 2 gm TOP 4XDAY 06/06/16 09/23/16 09/23/16 History Spironolactone 25 mg PO QHS 06/06/16 09/23/16 09/23/16 History Tizanidine HCl 4 mg PO BID 06/06/16 09/23/16 09/23/16 History Albuterol Sulfate [Ventolin Hfa] 2 puff IH Q4H PRN PRN #1 hfa.aer.[id number] 06/13/1609/23/16 Rx Lubiprostone [Amitiza] 24 microgm PO BID PRN PRN #20 06/13/16 09/23/16 09/23/16 Rx capsule Mirtazapine [Remeron] 30 mg PO HS #60 tablet 06/13/16 09/23/16 09/23/16 Rx Nystatin 100,000 unit PO DAILY #100 ml 06/13/16 09/23/16 09/23/16 Rx Nystatin Susp [Mycostatin Susp] 5 ml PO 4XDAY #200 bottle 06/13/16 09/23/16 Rx - History of Present Illness -Gen Adult Nature of Presenting Problems: 60 y/o F presents to ED per EMS. Pt has lung CA and mets to the brain. Pt has had chemo but states has not had any in 2 months. Pt presents today due to increased pain all over and unable to handle it. Pt states " could not take it anymore'. Pt does have pain medication and on exam pt seem sedated. Pt states she can not walk or more. Pt reports being weak after traveling to [place] on Monday. Pt is alert and can answer questions appropriately. Pt states she was seen at office this AM where blood work was done then was told to follow up with for further evaluation. Location of Pain/Injury: reports: generalized Pain Radiation: reports: no radiation Quality of Pain: reports: aching, throbbing Severity: reports: mild Onset/Duration: reports: gradual Timing: reports: still present Context/Activities at Onset: reports: light activity Modifying Factors: improves with: nothing Associated Symptoms: reports: weakness, other (pain). denies: chest pain, constipation, cough, diarrhea, dizziness, fever/chills, sinus congestion/ drainage, nausea, shortness of breath, swelling/mass in abdomen, syncope Similar Symptoms Previously?: Yes Recently seen or treated by another doctor?: Yes Review of Systems - Adult - REVIEW OF SYSTEMS - ADULT Constitutional: denies: chills, fever Eyes: denies: blurred vision, double vision Ears, Nose, Mouth & Throat: denies: ear pain, throat pain Cardiovascular: denies: chest pain, irregular heart rate, palpitations, syncope Respiratory: denies: cough, pleurisy, shortness of breath, wheezing Gastrointestinal: denies: abdominal pain, diarrhea, nausea, vomiting Musculoskeletal: reports: muscle aches, other (generalized pain all over) Neurological: denies: dizziness/vertigo, headache/migraines Past History - Adult - PAST MEDICAL HISTORY-ADULT Review of Records: reports: Old Records Reviewed, Nursing Assessment Review Major Childhood Illnesses: reports: denies history Cardiovascular: reports: HTN Respiratory: reports: cancer (lung) Gastrointestinal: reports: GERD, liver disease (cirrhosis) Genitourinary: reports: chronic UTI's Musculoskeletal: reports: arthritis (Rheumatoid), chronic pain, orthopedic injury Psychiatric: reports: anxiety - PRIOR SURGERIES/PROCEDURES Surgical/Procedure History: reports: hysterectomy, BTL, other (hemorroid) - IMMUNIZATION STATUS Childhood Immunizations: See Nurse Assessment Flu Vaccine: See Nurse Assessment - FAMILY HISTORY Family History: reviewed, not pertinent - SOCIAL HISTORY Smoking: quit greater than 1 year Substance Use: none/never, denies Physical Exam-General - PHYSICAL EXAM-ADULT Initial Vital Signs Reviewed: Yes - CONSTITUTIONAL General Appearance: alert, no apparent distress, obese, slow to respond - EYES Eyes: pink conjunctivae - HEAD, EARS, NOSE, MOUTH & THROAT HENMT: normocephalic/atraumatic, other (dry mucous membranes). negative: moist mucous membranes - NECK Neck: full range of motion - RESPIRATORY Respiratory: chest non-tender, lungs clear, normal breath sounds, no respiratory distress, no accessory muscle use - CARDIOVASCULAR Cardiovascular: normal peripheral pulses, regular rate, rhythm, no edema, other (peripheral edema to bilat legs/hands) - GASTROINTESTINAL (ABDOMEN) Abdominal Exam: normal bowel sounds, non tender, soft - MUSCULOSKELETAL Back Exam: normal inspection Extremity: normal range of motion - SKIN Integumentary: normal color, normal turgor, warm/dry - NEUROLOGIC Neurologic: grossly normal, no motor/sensory deficits - PSYCHIATRIC Psych/Mental Status: other (alert and oriented- slow to respond) Progress - PLAN OF CARE/RESULTS Progress/Plan/Lab Results: PLAN: LABS , MONITOR PT Result Diagrams: 09/23/16 11:17 09/23/16 11:17 - REASSESSMENT Reassessment #1 Time Reassessed: 13:00 Status: unchanged Reassessment Comment: Pt is still in pain and not improving Reassessment #2 Time Reassessed: 14:08 Status: unchanged Reassessment Comment: Pt reports not feeling any better and still having pain - CONSULTS/PCP/HOSPITALIST Notification #1 *Consult/PCP/Hospitalist*: Chuckie(MEDICARE CONTACT SPECIALIST w/ hospitalist) (hospitalist) Time Discussed: 14:26 Consult Disposition: Admit Departure - Departure Date of Disposition Decision: 09/23/16 Time of Disposition Decision: 14:29 DIAGNOSIS: Chronic pain, Lung cancer, Weakness, Dehydration Disposition: ADMITTED INPATIENT 09 Certified Medical Emergency: Emergent Condition: Stable Referrals and Follow-Ups: Sinan Foster MD [Primary Care Provider] - - Critical Care Note This patient required my direct & personal management of CC.: No This chart was documented by the indicated scribe, (Meeta Connor Scribe) and accurately reflects the services I performed and decisions made by me, Perez Duval MD, as attested by the provider's signature.
== END 2016-09-30 15:43 | disposition home or self-care (01) ==
LOC: ED 10:37 → OPS 10:52 → 3N 10:52 → SUATTDRO 15:42 → INTOOBSV 15:42 → 3N 15:42 → OPS 09-30 13:46 → UNDODISOB 09-30 15:43 → OPS 10-07 14:22
PROVIDERS: ADMIT Emergency Medicine; ATTEND Emergency Medicine